=== PATIENT | female | born 1945 | race Caucasian/White ===

== ENCOUNTER 2021-07-01 08:09 | Emergency (ER) | payer OTHER ==
--- OUTSIDE RECORDS SUMMARY | 2021-07-01 08:13 | XMS REPORT | Continuity of Care Document ---
:1945 Author Organization [facility] t Address [address] [place] [address] Care Team Providers Name Role Phone YOSEF Attending Clinician Unavailable Yosef SYKES Attending Clinician Jed Mcmahon DO Attending Clinician 2, Lab Attending Clinician Unavailable Doctor Unassigned, Name Attending Clinician Unavailable Payers Payer Name Policy Type Policy Number Effective Date Expiration Date S ource Problems Condition Condition Condition Status Onset Resolution Last Treating Co mments Source Name Details Category Date Date Treatment Clinician Date Status Status Disease Active Univers post total post total 03-11 [place] repl[place] replac[place] 00 Me dical t t Branch Degenerati Degenerati Disease Active U nivers ve joint ve joint 6-26 [place] disease [place] right [place] 00 Me dical Branch Total knee Total knee Disease Active U nivers replacemen replacemen 6-25 it y of t status t status 00:00: [place] [address] Medical Branch Obesity Obesity Disease Active Univers (BMI (BMI 7-24 ity of 30-39.9) 30-39.9) 00:00: [place] [facility] 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 7-24 [place]y of arthropl[place]plas [place] 00 [place] Allergies, Adverse Reactions, Alerts Allergy Allergy Status Severity Reaction(s) Onset Inactive Treating Comm ents Source Name Type Date Date Clinician CIPROFLO DRUG Active N/V Univers XACIN INGREDI 03-11 ity of 00:00: [place] [facility] METRONID DRUG Active N/V Univers AZOLE INGREDI 03-11 ity of 00:00: [place] [facility] Ciproflo Propensi Active Nausea Univer s xacin ty to and/or 03-11 ity of adverse Vomiting 00:00: [place] reaction 00 Medical s Branch Metronid Propensi Active Nausea Univer s azole ty to and/or 03-11 ity of adverse Vomiting 00:00: [place] reaction 00 Medical s Branch CODEINE DRUG Active SOB Univers INGREDI 4-19 ity of 00:00: [place] 00 Medical Branch IODINE Drug Active Hives Univers AND Class 4-19 ity of IODIDE 00:00: [place] CONTAINI 00 Medical Branch PRODUCTS MORPHINE DRUG Active Hallucinates Un melissa (PF) 4-19 ity of 00:00: [place] 00 Medical Branch Codeine Propensi Active Shortness of U nivers ty to Breath 4-19 ity of adverse 00:00: [place] reaction 00 Medical s Branch Iodine Propensi Active Hives Univers And ty to 4-19 ity of Iodide adverse 00:00: [place] Containi reaction 00 Medica l s Branch Products Morphine Propensi Active Hallucinatio Univers (Pf) ty to ns 4-19 ity of adverse 00:00: [place] reaction 00 Medical Branch ADHESIVE Drug Active Other-Cmnt Univ ers Class ity of [facility] [place] [facility] Adhesive Propensi Active Other - See U nivers ty to comments ity of adverse [place] reaction [facility] [place] Social History Social Habit Start Date Stop Date Quantity Comments Source Sex Assigned At Universit y of [facility] [place] [facility] Exposure to Not sure [place] of SARS-CoV-2 [facility] (event) Branch History of Smoker University of tobacco use [facility] [place] [facility] Alcohol intake 2020-08-04 2020-08-04 Current University of 00:00:00 00:00:00 non-drinker of [facility] alcohol Branch (finding) Tobacco use and 2020-08-04 2020-08-04 Never used Universit y of exposure 00:00:00 00:00:00 [facility] [place] [facility] Alcohol Comment 2019-01-07 2019-01-07 quit Universit y of 00:00:00 00:00:00 [facility] [place] [facility] Smoking Status Start Date Stop Date Source Former smoker 2020-08-04 00:00:00 2020-08-04 00:00:00 Universi ty of [facility] [place] [facility] Medications Ordered Filled Start Stop Current Ordering Indication Dosage Frequency Signature Comments Components Source Medication Medication Date Date Medication? Clinician (SIG) Name Name LEVOTHYROXI Yes [id number] TAKE ONE Univers [place] 150 mcg 1-11 150MCG ity of tablet 00:00: TABLET ON [place] [facility] THRU Branch SUNDAY LEVOTHYROXI Yes [id number] TAKE ONE Univers [place] 150 mcg 1-11 150MCG ity of tablet 00:00: TABLET ON [place] Sunday [facility] THRU Branch SUNDAY LEVOTHYROXI Yes [id number] TAKE ONE Univers NE 150 mcg 1-11 150MCG ity of tablet 00:00: TABLET ON [place] [facility] THRU Branch SUNDAY MAGNESIUM 2019-08 Yes Take by Univ ers AMINO ACID 2-30 mouth. ity of CHELATE 17:28: [place] [address] Medical Branch aspirin 325 2019-08 Yes 325mg Take 325 U nivers mg tablet 2-30 mg by ity of 17:28: mouth [place] 29 daily. Medical Branch Zinc 50 mg 2019-08 Yes 50mg Take 50 mg U nivers Tab 2-30 by mouth ity of 17:28: daily. [place] [address] Medical Branch MAGNESIUM 2019-08 Yes Take by Univ ers AMINO ACID 2-30 mouth. ity of CHELATE 17:28: [place] [address] Medical Branch aspirin 325 2019-08 Yes 325mg Take 325 U nivers mg tablet 2-30 mg by ity of 17:28: mouth [place] 29 daily. Medical Branch Zinc 50 mg 2019- Yes 50mg Take 50 mg U nivers Tab 2-30 by mouth ity of 17:28: daily. [place] [address] Medical Branch MAGNESIUM 2019-08 Yes Take by Univ ers AMINO ACID 2-30 mouth. ity of CHELATE 17:28: [place] [address] Medical Branch aspirin 325 2019-08 Yes 325mg Take 325 U nivers mg tablet 2-30 mg by ity of 17:28: mouth [place] 29 daily. Medical Branch Zinc 50 mg 2019-08 Yes 50mg Take 50 mg U nivers Tab 2-30 by mouth ity of 17:28: daily. [place] [address] Medical Branch MAGNESIUM 2019- Yes Take by Univ ers AMINO ACID 2-30 mouth. ity of CHELATE 17:28: [place] [address] Medical Branch MAGNESIUM 2019-08 Yes Take by Univ ers AMINO ACID 2-30 mouth. ity of CHELATE 17:28: [place] ORAL 29 Medical Branch aspirin 325 2019-08 Yes 325mg Take 325 U nivers mg tablet 2-30 mg by ity of 17:28: mouth [place] 29 daily. Medical Branch Zinc 50 mg 2019-08 Yes 50mg Take 50 mg U nivers Tab 2-30 by mouth ity of 17:28: daily. [place] [address] Medical Branch MAGNESIUM 2019-08 Yes Take by Univ ers AMINO ACID 2-30 mouth. ity of CHELATE 17:28: [place] [address] Medical Branch aspirin 325 2019-08 Yes 325mg Take 325 U nivers mg tablet 2-30 mg by ity of 17:28: mouth [place] 29 daily. Medical Branch Zinc 50 mg 2019-08 Yes 50mg Take 50 mg U nivers Tab 2-30 by mouth ity of 17:28: daily. [place] [address] Medical Branch MAGNESIUM 2019-08 Yes Take by Univ ers AMINO ACID 2-30 mouth. ity of CHELATE 17:28: [place] [address] Medical Branch aspirin 325 2019-08 Yes 325mg Take 325 U nivers mg tablet 2-30 mg by ity of 17:28: mouth [place] 29 daily. Medical Branch Zinc 50 mg 2019-08 Yes 50mg Take 50 mg U nivers Tab 2-30 by mouth ity of 17:28: daily. [place] [address] Medical Branch Alpha 2019-08 2020- No 600mg Take 600 Univer s Lipoic Acid 2-30 12-30 mg by ity of 600 mg Cap 17:27: 00:00 mouth 2 Víctor as 35 :00 (two) Medical times Branch daily. Alpha 2019-08 2020- No 600mg Take 600 Univer s Lipoic Acid 2-30 12-30 mg by ity of 600 mg Cap 17:27: 00:00 mouth 2 Víctor as 35 :00 (two) Medical times Branch daily. levothyroxi 2019-08 Yes [id number] Take one Univers ne 150 mcg 2-16 150mcg ity of tablet 00:00: tablet on [place] [facility] thru Branch Sunday levothyroxi 2019-08 Yes [id number] Take one Univers ne 150 mcg 2-16 150mcg ity of tablet 00:00: tablet on [place] [facility] thru Branch Sunday levothyroxi 2019-08 Yes [id number] Take one Univers ne 150 mcg 2-16 150mcg ity of tablet 00:00: tablet on [place] [facility] thru Branch Sunday levothyroxi 2019-08- No [id number] Take one Univers ne 150 mcg 16 - 150mcg ity of tablet 00:00: 00:00 tablet on 00 00 Sunday Medical thru Branch Sunday levothyroxi 2019-08- No [id number] Take one Univers ne 150 mcg 216 - 150mcg ity of tablet 00:00: 00:00 tablet on 00 00 Sunday Medical thru Branch Sunday levothyroxi 2019-08- No [id number] Take one Univers ne 150 mcg 16 - 150mcg ity of tablet 00:00: 00:00 tablet on 00 00 Sunday Medical thru Branch Sunday levothyroxi 2019- No [id number] Take one Univers ne 150 mcg 08-14 150mcg ity of tablet 00:00: 00:00 tablet on 00 :00 [facility] [place] Sunday coenzyme 2019 Yes 100mg Take 100 Univ ers Q10 6-04 mg by ity of (COQ-10) 15:40: mouth [place] 100 mg 29 daily. Medical softgel Branch cyanocobala Yes 1{dose} Take 1 U nivers min, 6-04 Dose by ity of vitamin 15:40: mouth [place] B-12, 29 daily. Medical (VITAMIN Branch B-12) 1,000 mcg/mL Drop multivitami Yes 1{tbl} Take 1 Un melissa n, 6-04 tablet by ity of [place]-minerals 15:40: mouth [place] (COMPLETE 29 daily. Medical MULTIVITAMI Branch N) tablet coenzyme 2019-0 Yes 100mg Take 100 Univ ers Q10 6-04 mg by ity of (COQ-10) 15:40: mouth [place] 100 mg 29 daily. Medical softgel Branch cyanocobala 2019 Yes 1{dose} Take 1 U nivers min, 6-04 Dose by ity of vitamin 15:40: mouth [place] B-12, 29 daily. Medical (VITAMIN Branch B-12) 1,000 mcg/mL Drop multivitami 2019-0 Yes 1{tbl} Take 1 Un melissa n, 6-04 tablet by ity of [place]-minerals 15:40: mouth [place] (COMPLETE 29 daily. Medical MULTIVITAMI Branch N) tablet coenzyme 2019-0 Yes 100mg Take 100 Univ ers Q10 6-04 mg by ity of (COQ-10) 15:40: mouth [place] 100 mg 29 daily. Medical softgel Branch cyanocobala 20190 Yes 1{dose} Take 1 U nivers min, 6-04 Dose by ity of vitamin 15:40: mouth [place] B-12, 29 daily. Medical (VITAMIN Branch B-12) 1,000 mcg/mL Drop multivitami 2019-0 Yes 1{tbl} Take 1 Un melissa n, 6-04 tablet by ity of [place]-minerals 15:40: mouth [place] (COMPLETE 29 daily. Medical MULTIVITAMI Branch N) tablet Alpha 2019-0 Yes 600mg Take 600 Univers Lipoic Acid 6-04 mg by ity of 600 mg Cap 15:40: [place] 2 [place] (two) Medical times Branch daily. coenzyme 2019-0 Yes 100mg Take 100 Univ ers Q10 6-04 mg by ity of (COQ-10) 15:40: mouth [place] 100 mg 29 daily. Medical softgel Branch MAGNESIUM 0 Yes Take by Univ ers AMINO ACID 6-04 mouth. ity of CHELATE 15:40: [place] ORAL 29 Medical Branch cyanocobala Yes 1{dose} Take 1 U nivers min, 6-04 Dose by ity of vitamin 15:40: mouth [place] B-12, 29 daily. Medical (VITAMIN Branch B-12) 1,000 mcg/mL Drop multivitami 2019-0 Yes 1{tbl} Take 1 Un melissa n, 6-04 tablet by ity of [place]-minerals 15:40: mouth [place] (COMPLETE 29 daily. Medical MULTIVITAMI Branch N) tablet Alpha 2019-0 Yes 600mg Take 600 Univers Lipoic Acid 6-04 mg by ity of 600 mg Cap 15:40: [place] 2 [place] (two) Medical times Branch daily. coenzyme 2019-0 Yes 100mg Take 100 Univ ers Q10 6-04 mg by ity of (COQ-10) 15:40: mouth [place] 100 mg 29 daily. Medical softgel Branch MAGNESIUM 2019-0 Yes Take by Univ ers AMINO ACID 6-04 mouth. ity of CHELATE 15:40: [place] ORAL 29 Medical Branch cyanocobala 2019-0 Yes 1{dose} Take 1 U nivers min, 6-04 Dose by ity of vitamin 15:40: mouth [place] B-12, 29 daily. Medical (VITAMIN Branch B-12) 1,000 mcg/mL Drop multivitami Yes 1{tbl} Take 1 Un melissa n, 6-04 tablet by ity of [place]-minerals 15:40: mouth [place] (COMPLETE 29 daily. Medical MULTIVITAMI Branch N) tablet coenzyme Yes 100mg Take 100 Univ ers Q10 6-04 mg by ity of (COQ-10) 15:40: mouth [place] 100 mg 29 daily. Medical softgel Branch cyanocobala Yes 1{dose} Take 1 U nivers min, 6-04 Dose by ity of vitamin 15:40: mouth [place] B-12, 29 daily. Medical (VITAMIN Branch B-12) 1,000 mcg/mL Drop multivitami Yes 1{tbl} Take 1 Un melissa n, 6-04 tablet by ity of [place]-minerals 15:40: mouth [place] (COMPLETE 29 daily. Medical MULTIVITAMI Branch N) tablet coenzyme 0 Yes 100mg Take 100 Univ ers Q10 6-04 mg by ity of (COQ-10) 15:40: mouth [place] 100 mg 29 daily. Medical softgel Branch cyanocobala Yes 1{dose} Take 1 U nivers min, 6-04 Dose by ity of vitamin 15:40: mouth [place] B-12, 29 daily. Medical (VITAMIN Branch B-12) 1,000 mcg/mL Drop multivitami Yes 1{tbl} Take 1 Un melissa n, 6-04 tablet by ity of [place]-minerals 15:40: mouth [place] (COMPLETE 29 daily. Medical MULTIVITAMI Branch N) tablet coenzyme 0 Yes 100mg Take 100 Univ ers Q10 6-04 mg by ity of (COQ-10) 15:40: mouth [place] 100 mg 29 daily. Medical softgel Branch cyanocobala Yes 1{dose} Take 1 U nivers min, 6-04 Dose by ity of vitamin 15:40: mouth [place] B-12, 29 daily. Medical (VITAMIN Branch B-12) 1,000 mcg/mL Drop multivitami Yes 1{tbl} Take 1 Un melissa n, 6-04 tablet by ity of [place]-minerals 15:40: mouth [place] (COMPLETE 29 daily. Medical MULTIVITAMI Branch N) tablet coenzyme Yes 100mg Take 100 Univ ers Q10 6-04 mg by ity of (COQ-10) 15:40: mouth [place] 100 mg 29 daily. Medical softgel Branch cyanocobala Yes 1{dose} Take 1 U nivers min, 6-04 Dose by ity of vitamin 15:40: mouth [place] B-12, 29 daily. Medical (VITAMIN Branch B-12) 1,000 mcg/mL Drop multivitami Yes 1{tbl} Take 1 Un melissa n, 6-04 tablet by ity of [place]-minerals 15:40: mouth [place] (COMPLETE 29 daily. Medical MULTIVITAMI Branch N) tablet naproxen Yes TAKE 1 Univers 500 mg 5-06 TABLET BY ity of tablet 00:00: MOUTH [place] 00 TWICE A Medical DAY Branch naproxen Yes TAKE 1 Univers 500 mg 5-06 TABLET BY ity of tablet 00:00: MOUTH [place] 00 TWICE A Medical DAY Branch naproxen 2020- No TAKE 1 Univer s 500 mg 5-06 12-30 TABLET BY ity of tablet 00:00: 00:00 MOUTH [place] 00 :00 TWICE A Medical DAY Branch naproxen 0 2020- No TAKE 1 Univer s 500 mg 5-06 12-30 TABLET BY ity of tablet 00:00: 00:00 MOUTH [place] 00 :00 TWICE A Medical DAY Branch digoxin 125 Yes 125ug Take 125 U nivers mcg tablet 4-29 mcg by ity of 00:00: mouth [place] 00 daily. Medical Branch digoxin 125 Yes 125ug Take 125 U nivers mcg tablet 4-29 mcg by ity of 00:00: mouth [place] 00 daily. Medical Branch digoxin 125 2020- No 125ug Take 125 Univers mcg tablet 4-29 12-30 mcg by ity of 00:00: 00:00 mouth [place] 00 :00 daily. Medical Branch digoxin 125 2020- No 125ug Take 125 Univers mcg tablet 4-29 12-30 mcg by ity of 00:00: 00:00 mouth [place] 00 :00 daily. Medical Branch atenolol 25 Yes 50mg Take 50 mg Univers mg tablet 8-02 by mouth ity of 00:00: daily. Medical Branch atenolol 25 Yes 50mg Take 50 mg Univers mg tablet 03-07 by mouth ity of 00:00: daily. [facility] Branch atenolol 25 Yes 50mg Take 50 mg Univers mg tablet 03-07 by mouth ity of 00:00: daily. [place] [facility] Branch atenolol 25 Yes Univer s mg tablet 03-07 ity of 00:00: Medical Branch atenolol 25 Yes Univer s mg tablet 03-07 ity of 00:00: [place] [facility] atenolol 25 Yes 50mg Take 50 mg Univers mg tablet 03-07 by mouth ity of 00:00: daily. [place] [facility] Branch atenolol Yes 50mg Take 50 mg Univers mg tablet 03-07 by mouth ity of 00:00: daily. [place] [facility] atenolol Yes 50mg Take 50 mg Univers mg tablet 03-07 by mouth ity of 00:00: daily. [place] [facility] Branch atenolol Yes 50mg Take 50 mg Univers mg tablet 03-07 by mouth ity of 00:00: daily. [place] [facility] Branch pantoprazol Yes 20mg Take 20 mg Univers e 20 mg EC 4-21 by mouth ity o f tablet 00:00: daily. [place] [facility] Branch pantoprazol Yes 20mg Take 20 mg Univers e 20 mg EC 4-21 by mouth ity o f tablet 00:00: daily. [place] [facility] pantoprazol 2020- No 20mg Take 20 mg Univers e 20 mg EC 4-21 12-30 by mouth ity of tablet 00:00: 00:00 daily. [place] 00 [facility] pantoprazol 2020- No 20mg Take 20 mg Univers e 20 mg EC 4-21 12-30 by mouth ity of tablet 00:00: 00:00 daily. [place] 00 :00 [facility] Branch traMADOL 50 Yes 50mg Take 1 Univ ers mg tablet 7-27 tablet by ity o f 00:00: mouth [place] [address] every 4 Medical (four) Branch hours as needed for Pain (scale 7-10). traMADOL 50 2017-0 Yes 50mg Take 1 Univ ers mg tablet 7-27 tablet by ity o f 00:00: mouth [place] 00 every 4 Medical (four) Branch hours as needed for Pain (scale 7-10). traMADOL 50 2017-0 Yes 50mg Take 1 Univ ers mg tablet 7-27 tablet by ity o f 00:00: mouth [place] 00 every 4 Medical (four) Branch hours as needed for Pain (scale 7-10). traMADOL 50 2017-0 Yes 50mg Take 1 Univ ers mg tablet 7-27 tablet by ity o f 00:00: mouth [place] 00 every 4 Medical (four) Branch hours as needed for Pain (scale 7-10). traMADOL 50 2017-0 Yes 50mg Take 1 Univ ers mg tablet 7-27 tablet by ity o f 00:00: mouth [place] 00 every 4 Medical (four) Branch hours as needed for Pain (scale 7-10). traMADOL 50 2017-0 Yes 50mg Take 1 Univ ers mg tablet 7-27 tablet by ity o f 00:00: mouth [place] 00 every 4 Medical (four) Branch hours as needed for Pain (scale 7-10). traMADOL 50 2017-0 Yes 50mg Take 1 Univ ers mg tablet 7-27 tablet by ity o f 00:00: mouth [place] 00 every 4 Medical (four) Branch hours as needed for Pain (scale 7-10). traMADOL 50 2017-0 Yes 50mg Take 1 Univ ers mg tablet 7-27 tablet by ity o f 00:00: mouth [place] 00 every 4 Medical (four) Branch hours as needed for Pain (scale 7-10). traMADOL 50 2017-0 Yes 50mg Take 1 Univ ers mg tablet 7-27 tablet by ity o f 00:00: mouth [place] 00 every 4 Medical (four) Branch hours as needed for Pain (scale 7-10). Vital Signs Vital Name Observation Time Observation Value Comments Source Systolic blood 2020-08-04 17:24:00 115 mm[Hg] Univer sity of pressure [facility] [place] [facility] Diastolic blood 2020-08-04 17:24:00 77 mm[Hg] Unive rsity of [facility] Heart rate 2020-08-04 17:24:00 70 /min Universi ty of [facility] [place] [facility] Respiratory rate 2020-08-04 17:24:00 18 /min Univ ersity of [facility] [place] [facility] Body height 2020-08-04 17:24:00 167.6 cm Universi ty of [facility] [place] [facility] Body weight 2020-08-04 17:24:00 98.975 kg Universi ty [facility] BMI 2020-08-04 17:24:00 35.22 kg/m2 Universi ty [facility] Oxygen saturation in 2020-08-04 17:24:00 97 /min [facility] Arterial blood by [facility] Pulse oximetry Branch Procedures Procedure Date / Time Performed Performing Clinician [facility] e ASSIGNMENT OF BENEFITS 2020-08-04 16:54:18 Doctor Unassigned, No [facility] Name Medical Branch REFERRAL- 2020-07-20 06:01:00 Doctor Unassigned, No [facility] REQUEST/RESPONSE Name Medical [place] Encounters Start End Encounter Admission Attending Care Care Encounter Source Date/Time Date/Time Type Type Clinicians Facility Department ID 2021-07-27 2021-07-27 Outpatient R YOSEF [facility] [id number] Univers 09:00:00 09:00:00 TIFFANIE [id number] ity [facility] 2021-07-13 2021-07-13 Outpatient R YOSEF [facility] [id number] Univers 09:00:00 09:00:00 TIFFANIE [id number] ity [facility] 2020-09-03 2020-09-03 Patient Yosef [facility] [id number] Univers 00:00:00 00:00:00 Secure Msg Tiffanie Quiroga [id number] ity [facility] [id number] Profess[place] [phone] De dical nal [address] Branch Building 2020-08-29 2020-08-29 Patient Lisandro AKMIKE [id number] Univers 00:00:00 00:00:00 Outreach Louie PRIMARY [id number] i ty of [facility] [id number] [phone] De dical 388 Branch 2020-08-14 2020-08-14 Refill Yosef [facility] [id number] Univers 00:00:00 00:00:00 Tiffanei Quiroga [id number] i ty of [id number] [phone] De dical nal 220 [facility] 2020-08-11 2020-08-11 Weights And Measures Sealer 2, Adc Lab [facility] 1.2.840.114 [id number] Univers 08:18:43 08:33:43 Visit Tiffanie Navas [id number] ity of [place] [id number] [phone] De dical nal 353 [facility] 2020-08-11 2020-08-11 Outpatient R [facility] [id number] Univers 08:15:00 08:15:00 [id number] ity [facility] 2020-08-11 2020-08-11 Outpatient R [facility] [id number] Univers 08:15:00 08:15:00 ity [facility] 2020-08-04 2020-08-04 [facility] 1.2.840.114 [id number] Univers 10:54:28 12:09:44 Visit Scottankita [place] [id number] i ty [place] [id number] [phone] [facility] 220 [facility] 2020-08-04 2020-08-04 Outpatient R YOSEF [facility] [id number] Univers 11:00:00 11:00:00 TIFFANIE [id number] ity [facility] 2020-08-04 2020-08-04 [facility] [id number] Univers 11:00:00 11:00:00 SCOTTONG ity [facility] 2020-08-04 2020-08-04 Orders Doctor KAMAR 1.2.840.114 [id number] Univers 00:00:00 00:00:00 Only Unassigned, BARBARA [id number] [facility] [id number] Víctor as [phone] [address] 2020-07-21 2020-07-21 [facility] [id number] Univers 00:00:00 00:00:00 Tiffanie [place] [id number] i ty [place] [id number] [phone] De dical [facility] 220 [facility] 2020-07-20 2020-07-20 Orders Doctor KAMAR [id number] Univers 00:00:00 00:00:00 Only Unassigned, BARBARA [id number] ity of [place] [facility] [id number] Víctor as [phone] [place] [id number] Branch 2020-05-05 2020-05-05 Outpatient R YOSEF [facility] [id number] Univers 10:00:00 10:00:00 TIFFANIE [id number] [facility] [place] [facility] 2020-05-05 2020-05-05 Outpatient R YOSEF [facility] [id number] Univers 10:00:00 10:00:00 TIFFANIE [facility] [place] [facility] Results This patient has no known results.
[2021-07-01 08:47] LABS: Absolute Lymphocytes (CBC) 1.7 K/uL (0.7-4.9); Basophils % 0.7 % (0-1.3); Hematocrit 40.5 % (36.0-45.0); Lymphocytes % 12.2 % (15.3-44.8); MPV 8.4 fL (7.6-11.3); RBC Red Blood Cell Count 4.42 M/uL (3.86-4.86)
[2021-07-01] MEDS ORDERED: NA CHLORIDE 0.9% 500 ML ONE (08:59)
[2021-07-01] MEDS ORDERED: ONDANSETRON 4 MG/2 ML VIAL ONE (08:59)
[2021-07-01] MEDS ORDERED: MORPHINE 4 MG/ML SYR ONE (08:59)
[2021-07-01 09:08] LABS: Albumin 3.4 g/dL (3.4-5.0); Bilirubin Direct 0.2 mg/dL (0-0.2); Bilirubin Total 0.5 mg/dL (0.2-1.0); Potassium 4.4 mmol/L (3.5-5.1); Protein, Total 8.4 g/dL (6.4-8.2)
[2021-07-01] MEDS ORDERED: TRAMADOL HCL 50 MG TAB ONE (09:16)
--- NOTE | 2021-07-01 09:46 | RAD REPORT ---
EXAM DESCRIPTION: CT - Abdomen Pelvis Wo Contrast - 07/01/2021 9:02 am CLINICAL HISTORY: Abdominal pain COMPARISON: 2015 TECHNIQUE: Computed axial tomography of the abdomen and pelvis was obtained. IV and oral contrast we re not requested. All CT scans are performed using dose optimization technique as appropriate and may include automated exposure control or mA/KV adjustment according to patient size. FINDINGS: The evaluation of solid organs, vessels and bowel is limited secondary to the lack of con trast administration. Cholecystectomy. Mild ground-glass opacity left lower lobe Liver, spleen, adrenals and left kidney grossly normal. 2 millimeter calculus right kidney without hydronephrosis. A 5.2 centimeter right renal cyst. Colectomy. Right lower quadrant ileostomy. 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 3.8 centimeter soft tissue structure right pelvis. A right hip arthroplasty IMPRESSION: Mild ground-glass opacity left lower lobe may represent pneumonitis. 3.8 centimeter soft tissue structure right pelvis. This may represent a confluence of on opacified tammy wel. Solid mass is a another consideration. It is recommended that the patient have a pelvic ultrasou nd for further evaluation. .
--- NOTE | 2021-07-01 11:12 | ER ---
Nurse's Notes [facility] Name: Christa Matos Age: 76 yrs Sex: Female : 1945 Arrival Date: 07/01/2021 Time: 08:13 Bed 13 Private MD: Jordan Yanez Diagnosis: Acute interstitial pneumonitis;Chest pain, unspecified;Upper abdominal pain, unspecified Presentation: 07/01 08:18 Chief complaint: Patient states: LLQ pain that began 1 day ago. Pt reports that about 1 ss hour ago she began experiencing pain in her chest that radiates towards her L shoulder at times. Coronavirus screen: Client denies travel out of the [place] in the last 14 days. Ebola Screen: Patient denies exposure to infectious person. Patient denies travel to an Ebola-affected area in the 21 days before illness onset. Initial Sepsis Screen: Does the patient meet any 2 criteria? HR > 90 bpm. No. Patient's initial sepsis screen is negative. Does the patient have a suspected source of infection? No. Patient's initial sepsis screen is negative. Risk Assessment: Do you want to hurt yourself or someone else? Patient reports no desire to harm self or others. Onset of symptoms was June 30, 2021. 08:18 Method Of Arrival: Ambulatory ss 08:18 Acuity: LILY 3 ss Historical: - Allergies: 08:38 Codeine; ss 08:38 contrast; ss 08:38 Iodine; ss 08:56 Cipro; ss 08:56 METRONIDAZOLE; ss - PMHx: 08:38 Atrial Fib; Hypertension; Hypothyroidism; osteoarthritis; ss - Immunization history:: Client reports having NOT received the Covid vaccine. - Social history:: Smoking status: Patient denies any tobacco usage or history of. Screenin:26 Abuse screen: Denies threats or abuse. Nutritional screening: No deficits noted. vg1 Tuberculosis screening: No symptoms or risk factors identified. Fall Risk No fall in past 12 months (0 pts). No secondary diagnosis (0 pts). IV access (20 points). Ambulatory Aid- Crutches/Cane/Walker (15 pts). Gait- Normal/Bed Rest/Wheelchair (0 pts) Mental Status- Oriented to own ability (0 pts). Total [place] Fall Scale indicates Low Risk Score (25-44 pts). Fall prevention measures have been instituted. Side Rails Up X 2 Placed close to Nursing Station Family Present and informed to notify staff if they need to leave bedside. Assessment: 08:24 General: Appears in no apparent distress. uncomfortable, Behavior is calm, cooperative. vg1 Pain: Complains of pain in left lower quadrant, Upper left side of chest and Left shoulder Pain currently is 7 out of 10 on a pain scale. Pain began 1 day ago. states LLQ pain began yesterday morning 06/30/21 with NV and today about an hour ago began to have chest pain into left shoulder. Neuro: Level of Consciousness is awake, alert, obeys commands, Oriented to person, place, time, situation. Cardiovascular: Patient's skin is warm and dry. Respiratory: Airway is patent Respiratory effort is even, unlabored. GI: Abdomen is round non-distended, Colostomy site Ostomy appliance is intact. Bowel sounds present X 4 quads. Abdomen is tender to palpation in left lower quadrant. : No signs and/or symptoms were reported regarding the genitourinary system. EENT: No signs and/or symptoms were reported regarding the EENT system. Derm: Skin is intact, is healthy with good turgor. Musculoskeletal: Circulation, motion, and sensation intact. 09:21 Reassessment: Patient appears in no apparent distress at this time. No changes from vg1 previously documented assessment. Patient and/or family updated on plan of care and expected duration. Pain level reassessed. Patient is alert, oriented x 3, equal unlabored respirations, skin warm/dry/pink. pt refused morphine due to the cause of hallucinations, preferred Tramadol, provider notified; Received VO from DR Dalton to administer Tramadol 50 mg PO x1. 10:27 Reassessment: Patient appears in no apparent distress at this time. Patient and/or vg1 family updated on plan of care and expected duration. Pain level reassessed. Patient is alert, oriented x 3, equal unlabored respirations, skin warm/dry/pink. states 'feeling a little better'. 11:40 Reassessment: Patient appears in no apparent distress at this time. No changes from vg1 previously documented assessment. Patient and/or family updated on plan of care and expected duration. Pain level reassessed. Patient is alert, oriented x 3, equal unlabored respirations, skin warm/dry/pink. Vital Signs: 08:26 BP 126 / 89; Pulse 98; Resp 20; Temp 97.8; Pulse Ox 97% ; Weight 97.52 kg; Height 5 ft. vg1 7 in. (170.18 cm); Pain 7/10; 09:22 BP 108 / 71; Pulse 97; Resp 16; Pulse Ox 97% ; vg1 10:27 BP 131 / 75; Pulse 97; Resp 20; Pulse Ox 97% ; vg1 11:40 BP 112 / 73; Pulse 89; Resp 20; Pulse Ox 97% ; vg1 08:26 Body Mass Index 33.67 (97.52 kg, 170.18 cm) vg1 ED Course: 08:13 Patient arrived in ED. as 08:13 Jordan Yanez is Private Physician. as 08:16 Stephen Dalton MD is Attending Physician. kdr 08:24 Gwendolyn Suh, RN is Primary Nurse. vg1 08:26 Patient has correct armband on for positive identification. Placed in gown. Bed in low vg1 position. Call light in reach. Side rails up X2. Adult w/ patient. 08:27 Arm band placed on. vg1 08:36 Basic Metabolic Panel Sent. mh5 08:36 CBC with Diff Sent. mh5 08:36 Hepatic Function Sent. mh5 08:36 Lipase Sent. mh5 08:36 Initial lab(s) drawn, by nj, sent to lab. EKG done, by ED staff, reviewed by Stephen Dalton MD. Inserted saline lock: 20 gauge in right antecubital area, using aseptic technique. Blood collected. 08:37 Triage completed. ss 08:37 Warm blanket given. school lunch monitor on. Pulse ox on. NIBP on. mh5 09:03 Abdomen In Process Unspecified. EDMS 11:08 Jordan Yanez is Referral Physician. kdr 11:41 No provider procedures requiring assistance completed. IV discontinued, intact, vg1 bleeding controlled, No redness/swelling at site. Pressure dressing applied. Administered Medications: 09:09 Drug: NS 0.9% 500 ml Route: IV; Rate: bolus; Site: right antecubital; vg1 10:27 Follow up: IV Status: Completed infusion; IV Intake: 500ml vg1 09:12 Drug: Zofran (Ondansetron) 4 mg Route: IVP; Site: right antecubital; vg1 10:27 Follow up: Response: No adverse reaction vg1 09:20 Not Given (Patient Refused; Stated 'morphine causes hallucinations'): morphine 4 mg vg1 IVP once; RASS on ADMIN: Combtv4, Very Agttd3, Agttd2, Rstlss1, AlertClm0, Drwsy-1, Lt Sdtn-2, Mod Sdtn-3, Dp Sdtn-4, UnArsble-5 09:20 Drug: traMADol 50 mg Route: PO; vg1 10:26 Follow up: Response: No adverse reaction; Pain is decreased vg1 Intake: 10:27 IV: 500ml; Total: 500ml. vg1 Outcome: 11:12 Discharge ordered by . kdr 11:41 Discharged to home ambulatory, with family. vg1 11:41 Condition: stable 11:41 Discharge instructions given to patient, Instructed on discharge instructions, follow up and referral plans. medication usage, Demonstrated understanding of instructions, follow-up care, medications, Prescriptions given X 1. 11:41 Patient left the ED. vg1 Signatures: Dispatcher [employer] EDMS Stephen Dalton MD MD kdr Martinez, Amelia as Smirch, Shelby, RN RN Sonal Payne [facility] Gwendolyn Suh, RN RN vg1
--- NOTE | 2021-07-01 11:13 | EDPHYS ---
Physician Documentation [facility] Name: Christa Matos Age: 76 yrs Sex: Female : 1945 Arrival Date: 07/01/2021 Time: 08:13 Bed 13 Private MD: Jordan Yanez ED Physician Stephen Dalton HPI: 07/01 08:49 This 76 yrs old Female presents to ER via Ambulatory with complaints of Abdominal Pain, kdr Shoulder Pain. 08:50 The patient presents with abdominal pain in the left upper quadrant. Onset: The kdr symptoms/episode began/occurred suddenly, The patient states that she awoke about 2 AM on morning with the abdominal pain in her left upper quadrant. Since then the pain has migrated and expanded to include her left chest and left shoulder. The symptoms radiate to the left shoulder. Associated signs and symptoms: Pertinent positives: nausea and vomiting, Patient initially had some nausea and vomiting at the onset but since then she has had primarily nausea. The symptoms are described as achy, dull, vague, Pressure. Modifying factors: The symptoms are alleviated by nothing, Rocking back and forth. the symptoms are aggravated by nothing. Severity of pain: At its worst the pain was mild moderate just prior to arrival, in the emergency department the pain is unchanged. The patient has experienced similar episodes in the past, Patient states that the discomfort today is not dissimilar to a prior bowel obstruction. The patient has not recently seen a physician. Historical: - Allergies: 08:38 Codeine; ss 08:38 contrast; ss 08:38 Iodine; ss 08:56 Cipro; ss 08:56 METRONIDAZOLE; ss - PMHx: 08:38 Atrial Fib; Hypertension; Hypothyroidism; osteoarthritis; ss - Immunization history:: Client reports having NOT received the Covid vaccine. - Social history:: Smoking status: Patient denies any tobacco usage or history of. ROS: 08:50 Constitutional: Negative for fever, chills, and weight loss, Eyes: Negative for injury, kdr pain, redness, and discharge, ENT: Negative for injury, pain, and discharge, Neck: Negative for injury, pain, and swelling, Cardiovascular: Negative for chest pain, palpitations, and edema, Respiratory: Negative for shortness of breath, cough, wheezing, and pleuritic chest pain, Back: Negative for injury and pain, : Negative for injury, bleeding, discharge, and swelling, MS/Extremity: Negative for injury and deformity, Skin: Negative for injury, rash, and discoloration, Neuro: Negative for headache, weakness, numbness, tingling, and seizure activity. Psych: Negative for depression, anxiety, suicide ideation, homicidal ideation, and hallucinations, Allergy/Immunology: Negative for hives, rash, and allergies, Endocrine: Negative for neck swelling, polydipsia, polyuria, polyphagia, and marked weight changes, Hematologic/Lymphatic: Negative for swollen nodes, abnormal bleeding, and unusual bruising. 08:50 Abdomen/GI: Positive for abdominal pain, nausea and vomiting. Exam: 08:50 Constitutional: This is a well developed, well nourished patient who is awake, alert, kdr and in no acute distress. Head/Face: Normocephalic, atraumatic. Eyes: Pupils equal round and reactive to light, extra-ocular motions intact. Lids and lashes normal. Conjunctiva and sclera are non-icteric and not injected. Cornea within normal limits. Periorbital areas with no swelling, redness, or edema. Neck: Trachea midline, no thyromegaly or masses palpated, and no cervical lymphadenopathy. Supple, full range of motion without nuchal rigidity, or vertebral point tenderness. No Meningismus. Chest/axilla: Normal chest wall appearance and motion. Nontender with no deformity. No lesions are appreciated. Cardiovascular: Regular rate and rhythm with a normal S1 and S2. No gallops, murmurs, or rubs. Normal PMI, no JVD. No pulse deficits. Respiratory: Lungs have equal breath sounds bilaterally, clear to auscultation and percussion. No rales, rhonchi or wheezes noted. No increased work of breathing, no retractions or nasal flaring. Back: No spinal tenderness. No costovertebral tenderness. Full range of motion. Skin: Warm, dry with normal turgor. Normal color with no rashes, no lesions, and no evidence of cellulitis. MS/ Extremity: Pulses equal, no cyanosis. Neurovascular intact. Full, normal range of motion. Neuro: Awake and alert, GCS 15, oriented to person, place, time, and situation. Cranial nerves II-XII grossly intact. Motor strength 5/5 in all extremities. Sensory grossly intact. Cerebellar exam normal. Normal gait. Psych: Awake, alert, with orientation to person, place and time. Behavior, mood, and affect are within normal limits. 08:50 Abdomen/GI: Inspection: abdomen appears normal, There is an ileostomy bag in the right lower quadrant which appears to be draining appropriately. There is no blood in her ileostomy bag, Bowel sounds: diminished, in all quadrants, Palpation: soft, mild abdominal tenderness, in the left upper quadrant. 09:23 ECG was reviewed by the Attending Physician. kdr Vital Signs: 08:26 BP 126 / 89; Pulse 98; Resp 20; Temp 97.8; Pulse Ox 97% ; Weight 97.52 kg; Height 5 ft. vg1 7 in. (170.18 cm); Pain 7/10; 09:22 BP 108 / 71; Pulse 97; Resp 16; Pulse Ox 97% ; vg1 10:27 BP 131 / 75; Pulse 97; Resp 20; Pulse Ox 97% ; vg1 11:40 BP 112 / 73; Pulse 89; Resp 20; Pulse Ox 97% ; vg1 08:26 Body Mass Index 33.67 (97.52 kg, 170.18 cm) vg1 MDM: 08:50 Data reviewed: vital signs, nurses notes, lab test result(s), radiologic studies. kdr Counseling: I had a detailed discussion with the patient and/or guardian regarding: the historical points, exam findings, and any diagnostic results supporting the discharge/admit diagnosis, lab results, radiology results. 11:06 ED course: Reviewed and discussed all laboratory data with the patient and her . kdr Responded to questions. Indicated that no focus was necessarily found beyond the pneumonitis. This may represent an early pneumonia. We will treat accordingly at this time. The patient had been taking Bactrim and fluconazole for a periumbilical infection with drainage. She had modified treatment and stopped taking the fluconazole earlier in the week but had been on the Bactrim since Sunday. She will stop the Bactrim and continue only with the Augmentin as prescribed. They are happy with the care provided and the plan for discharge and follow-up. 11:12 Patient medically screened. kdr 07/01 08:18 Order name: Basic Metabolic Panel kdr 07/01 08:18 Order name: CBC with Diff; Complete Time: 10:36 kdr 07/01 08:18 Order name: Hepatic Function; Complete Time: 10:36 kdr 07/01 08:18 Order name: Lipase; Complete Time: :36 kdr 07/01 08:19 Order name: Basic Metabolic Panel; Complete Time: :36 EDMS 07/01 08:18 Order name: IV Saline Lock; Complete Time: 08:36 kdr 07/01 08:18 Order name: Labs collected and sent; Complete Time: 08:36 kdr 07/01 08:51 Order name: Abdomen ; Complete Time: 10:36 EDMS EC: Rate is 105 beats/min. Rhythm is irregularly irregular, A fib with Occasional PVCs. QRS kdr [place] is Normal. [place] interval is normal. QRS interval is normal. QT interval is normal. Clinical impression: Atrial Fibrillation and With rapid ventricular response. Administered Medications: 09:09 Drug: NS 0.9% 500 ml Route: IV; Rate: bolus; Site: right antecubital; vg1 10:27 Follow up: IV Status: Completed infusion; IV Intake: 500ml vg1 09:12 Drug: Zofran (Ondansetron) 4 mg Route: IVP; Site: right antecubital; vg1 10:27 Follow up: Response: No adverse reaction vg1 09:20 Not Given (Patient Refused; Stated 'morphine causes hallucinations'): morphine 4 mg vg1 IVP once; RASS on ADMIN: Combtv4, Very Agttd3, Agttd2, Rstlss1, AlertClm0, Drwsy-1, Lt Sdtn-2, Mod Sdtn-3, Dp Sdtn-4, UnArsble-5 09:20 Drug: traMADol 50 mg Route: PO; vg1 10:26 Follow up: Response: No adverse reaction; Pain is decreased vg1 Disposition Summary: 07/01/21 11:12 Discharge Ordered Location: Home kdr Problem: new kdr Symptoms: have improved kdr Condition: Fair kdr Diagnosis - Acute interstitial pneumonitis kdr - Chest pain, unspecified kdr - Upper abdominal pain, unspecified kdr Followup: kdr - With: Jordan Yanez - When: 2 - 3 days - Reason: If symptoms return, Further diagnostic work-up, Recheck today's complaints, Continuance of care, Re-evaluation by your physician Discharge Instructions: - Discharge Summary Sheet kdr - Nonspecific Chest Pain, Adult, [id number] kdr - Pneumonitis kdr Forms: - Medication Reconciliation Form kdr - Thank You Letter kdr - Antibiotic Education kdr Prescriptions: - Augmentin 875-125 mg Oral Tablet - take 1 tablet by ORAL route every 12 hours for 10 days; 20 tablet; Refills: 0, kdr Product Selection Permitted Signatures: Dispatcher [employer] EDMS Stephen Dalton MD MD kdr Yeni Wilkins RN RN ss Gwendolyn Suh RN RN vg1 Corrections: (The following items were deleted from the chart) 08:51 08:48 Abdomen Pelvis W Con+CT.[id number].BRZ ordered. EDMS EDMS
[2021-07-01 11:51] VITALS: TEMP 97.8; O2SAT 97
[2021-07-01 11:55] VITALS: BP 112/73
== END 2021-07-01 11:41 | disposition home or self-care (01) ==
LOC: ER 08:09
DX: J84.114 Acute interstitial pneumonitis (principal); R10.12 Left upper quadrant pain; I10 Essential (primary) hypertension; Z88.1 Allergy status to other antibiotic agents; Z88.5 Allergy status to narcotic agent; Z91.041 Radiographic dye allergy status; Z91.048 Other nonmedicinal substance allergy status
CPT/HCPCS: 96361; 93005; 85025; 80048; 36415; 80076; 83690; 74176; 96374; 99285; J7040; J2405

== ENCOUNTER 2023-03-16 09:36 | Day surgery (SDC) | payer OTHER ==
[2023-03-16 09:55] LABS: Absolute Lymphocytes (CBC) 1.7 K/uL (0.7-4.9); Hematocrit 39.4 % (36.0-45.0); Lymphocytes % 19.3 % (15.3-44.8); MCV 95.4 fL (80-100); MPV 7.6 fL (7.6-11.3); Platelets 313 thou/uL (152-406); RBC Red Blood Cell Count 4.13 M/uL (3.86-4.86)
[2023-03-16] MEDS ORDERED: FENTANYL CITR 100 MCG/2 ML ONE (09:55)
[2023-03-16] MEDS ORDERED: dexAMETHasone 10 MG/ML VIAL ONE (09:55)
[2023-03-16] MEDS ORDERED: LIDOCAINE 1% MPF 5 ML VIAL ONE (09:55)
[2023-03-16] MEDS ORDERED: propofoL 200 MG/20 ML VIAL IV ONE ×4 (09:56→12:10)
[2023-03-16] MEDS ORDERED: EPINEPHRINE/PF 1 MG/ML AMP ONE (09:56)
[2023-03-16 10:08] LABS: Potassium 3.8 mEq/L (3.5-5.1)
[2023-03-16] MEDS ORDERED: Ringers Lactate 1,000 ML IV ONE (10:18)
[2023-03-16] MEDS ORDERED: CEFAZOLIN SODIUM 1 GM/VIAL ONE (10:18)
[2023-03-16] MEDS ORDERED: LIDOCAINE 2% MPF 5 ML VIAL ONE (11:21)
[2023-03-16] MEDS ORDERED: ESMOLOL HCL 10 ML IV ONE (11:46)
[2023-03-16] MEDS ORDERED: NS 0.9% VIAL 10 ML ONE ×2 (11:47→12:17)
--- NOTE | 2023-03-16 13:42 | RAD REPORT ---
EXAM DESCRIPTION: RAD - Fluoroscopy <1 Hour - 03/16/2023 1:32 pm CLINICAL HISTORY: ORIF RT OLECRANON COMPARISON: <Comparisons> FINDINGS: Fluoroscopy time: 0.8 minutes
[2023-03-16] MEDS ORDERED: HYDROCODONE/APAP 5/325 MG TAB ONE (14:18)
[2023-03-16 17:53] VITALS: BP 138/69; TEMP 97.6; O2SAT 96
--- NOTE | 2023-03-17 01:42 | OP ---
Date of Procedure: 03/16/2023 Surgeon: Levar Bateman MD Preoperative Diagnosis: Right comminuted highly displaced proximal ulnar fracture with involvement o f the elbow joint. Postoperative Diagnosis: Right comminuted highly displaced proximal ulnar fracture with involvement of the elbow joint. Procedure: Open reduction and internal fixation of olecranon and proximal ulnar fracture using the A cumed ulnar plating system. Estimated Blood Loss: 20 cc. Complications: There were no complications. Indications: Ms. Matos is a 77-year-old female who unfortunately fell, injuring her right upper extremity. She was seen and examined in my office where she was found to be neurovascularly intact. There were no signs of an open injury. However, x-rays demonstrated a highly comminuted and an ext remely displaced fracture of the proximal ulna. The ulnohumeral joint appeared to be intact and then it appeared to really involve the coronoid. Radial head is intact. Risks, benefits, and alternativ es of different methods of treating this were discussed with both her and the family and we will proc eed with open reduction and internal fixation of the ulna. They state they understand things as pres ented including risks associated and agreed to proceed. Description Of Procedure: The patient was taken to the operating room and placed in supine position. General anesthesia was obtained by staff. She previously had a block done in the holding area. Af ter this, her right upper extremity was then prepped and draped in the usual sterile fashion for the procedure and a sterile tourniquet was applied. The border of the ulna was then marked out using a m arking pen with a curve around the presumed tip of the ulna. Once it was reduced, C-arm was brought in to ensure we can get good AP and lateral views. After this, the arm was then elevated, but not ex sanguinated and the tourniquet was raised. A standard incision was made directly over the proximal u ginger farmer, which was taken down carefully through skin and soft tissues with a lateral deviation near the t ip of the olecranon. This then has progressed up a small distance for further exposure. This was ta keegan down carefully to the bone proximally to ensure that we were in the correct plane. It was then f ollowed up proximally until the fracture site was encountered. It should be noted that there was a l arge lateral fragment, which does not appear to involve the coronoid or joint surface. There was als o a small medial fragment. This was followed by the main fracture, which was cleaned and highly disp laced. The elbow joint was easily identified and any debris were cleared from there. The more proxi mal fracture fragment was then identified and cleaned. With the use of K-wires, the lateral fragment was held in place as the elbow was brought into extension, which allows for reapproximation of the t ip of the olecranon. After this has been held in place with a K-wire, the plate was then affixed wit h a split made in the triceps attachment to the tip. The more distal locking pegs appeared to be at the fracture site. If the plate is compressed down to the actual tip of the olecranon, it appears th at both of the sets of locking pegs would be in the fracture fragment. Therefore, decision made to l eave that a little bit more proximal than would normally fix. The toggle screw was then placed and t he fracture site was compressed and then the fracture was then held with additional 2 K-wires as the remainder of the screws were placed. These were checked under biplanar C-arm radiography and appeare d to approximate the joint surface quite well without over compression. It was brought through range of motion and it was felt to not gap and appears to be well captured. The most proximal screw was n ot used for fear of placing screws and the proximal fragment causing fragmentation, althou gh it does form a buttress. After this, the attention was then turned to the lateral fragment piece, which was then secured using a 2.7 screw. The final construct was observed under biplanar C-arm rad iography and appears to be corrected given the limits of the comminution as well as the patient's bon e stalk. The wound was copiously irrigated and the skin was closed using Vicryl sutures, followed by dl. She was then placed in Aquacel dressing as well as a bulky noncompressive dressing followe d by a well-padded posterior splint. She was then placed in a sling, awakened, and taken to recovery room. There were no complications. SE/MODL Voice ID: [id number] Report ID: [id number]
== END 2023-03-16 14:48 | disposition home or self-care (01) ==
LOC: OR 09:36
PROVIDERS: ATTEND Orthopaedic Surgery
PROC: 0PSK04Z Reposition Right Ulna with Internal Fixation Device, Open Approach (ICD-10-PCS; principal; 2023-03-16 11:30)
DX: S52.031A Displaced fracture of olecranon process with intraarticular extension of right ulna, initial encounter for closed fracture (principal)
CPT/HCPCS: 85025; 80048; 36415; 24685; A4216 ×2; J2704 ×3; J0171; J2001 ×2; J3010; J1100; J7120; J0690; 76000

== ENCOUNTER 2024-01-07 18:28 | Inpatient (IN) | payer OTHER ==
[~2024-01-07 18:28] MED LIST: ALBUTEROL 2.5 MG/3 ML NEB SOL ONE; DIPHENHYDRAMINE 50 MG/ML VIAL ONE; FAMOTIDINE 20 MG/2 ML VIAL IV ONE; IPRATROPIUM BROM 0.5MG/2.5ML ONE; METHYLPREDNISOLONE 125 MG INJ ONE; NA CHLORIDE 0.9% 1,000 ML ONE
--- NOTE | 2024-01-07 19:56 | RAD REPORT ---
EXAM DESCRIPTION: [facility] Single View01/07/2024 7:34 pm CLINICAL HISTORY: ABDOMINAL DISTENTION COMPARISON: Chest Pa And Lat (2 Views) dated 07/27/2021; Chest Single View dated 06/05/2016; Chest S carmel View dated 06/01/2016; Chest Single View dated 05/31/2016 TECHNIQUE: Portable AP view of the chest. FINDINGS: The lungs are clear. No pneumothorax or effusion. The cardiomediastinal contours are unre markable. IMPRESSION: No acute cardiopulmonary process.
--- NOTE | 2024-01-07 21:41 | RAD REPORT ---
EXAM DESCRIPTION: CT - Abdomen Pelvis Wo Contrast - 01/07/2024 8:25 pm CLINICAL HISTORY: ABD PAIN COMPARISON: No comparisonsAbdomen Pelvis Wo Contrast dated 07/18/2022; Abdomen Pelvis Wo Contras t dated 07/01/2021; Abdomen Pelvis Wo Contrast dated 05/29/2016; Abdomen Pelvis Wo Contrast dated 05/27/2016 TECHNIQUE: Thin cut axial CT imaging of the abdomen and pelvis was performed without IV contrast. Mu ltiplanar reformats were generated and reviewed. All CT scans are performed using dose optimization technique as appropriate and may include automated exposure control or mA/KV adjustment according to patient size. FINDINGS: No suspicious findings in the lung bases. The liver, spleen, adrenal glands, and pancreas show no suspicious findings. Gallbladder was surgical ly removed Symmetric renal contour, without suspicious parenchymal findings within limits of noncontrast techniq ue. No evidence of radiopaque calculi or hydroureteronephrosis. Stable lower pole cyst measuring 6.2 cm. 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 Small parastomal azul ia containing nondistended small bowel. Dilated mid to distal small bowel loops. Oral contrast progre sses to lower midline small bowel in the pelvis. A short segment of fecalization is seen in the right lower quadrant, with a transition point seen on series 201, image 55. No free air, free fluid or inf lammatory stranding. No hernia, mass or bulky lymphadenopathy. The urinary bladder is without signifi cant finding. No suspicious bony findings. IMPRESSION: Findings of small bowel obstruction, with distal small bowel focal transition point in t he right lower quadrant as above. Other stable findings as above.
[2024-01-07] MEDS ORDERED: ONDANSETRON 4 MG/2 ML VIAL ONE (22:31)
[2024-01-07] MEDS ORDERED: FENTANYL CITR 100 MCG/2 ML ONE (22:31)
[2024-01-07] MEDS ORDERED: FAMOTIDINE 20 MG/2 ML VIAL IV ONE (22:32)
[2024-01-07] MEDS ORDERED: NA CHLORIDE 0.9% 1,000 ML ONE (23:49)
[2024-01-07 23:57] LABS: Absolute Lymphocytes (CBC) 1.7 K/uL (0.7-4.9); Absolute Monocytes 0.6 K/uL (0.1-1.3); Absolute Neutrophil 10.8 K/uL (1.8-8.0); Basophils % 0.4 % (0-1.3); Eosinophils % 0.1 % (0-4.4); Hematocrit 39.7 % (36.0-45.0); Hemoglobin 13.4 g/dL (12.0-15.0); Lymphocytes % 13.2 % (15.3-44.8); MCH 31.8 pg (27.0-35.0); MCHC 33.6 g/dL (32.0-36.0); MCV 94.5 fL (80-100); MPV 8.7 fL (7.6-11.3); Monocytes % 4.3 % (3.3-12.3); Nucleated Red Blood Cells % 0.1 % (0-0); Platelets 311 thou/uL (152-406); RBC Red Blood Cell Count 4.21 M/uL (3.86-4.86); Red Cell Distribution Width 13.7 % (12.1-15.2)
[2024-01-08 00:10] LABS: Albumin 3.8 g/dL (3.4-5.0); Albumin/Globulin Ratio 0.9 (1.1-1.8); Anion Gap 10.1 mEq/L (5.0-15.0); Bilirubin Total 0.6 mg/dL (0.2-1.0); Globulin 4.4 g/dL (2.3-3.5); Potassium 4.1 mEq/L (3.5-5.1); Protein, Total 8.2 g/dL (6.4-8.2)
--- NOTE | 2024-01-08 00:32 | EDPHYS ---
Physician Documentation [facility] Name: Christa Matos Age: 78 yrs Sex: Female : 1945 Arrival Date: 01/07/2024 Time: 18:28 Bed 20 Private MD: ED Physician Alysia Lee HPI: 01/06 18:55 This 78 yrs old Female presents to ER via Ambulatory with complaints of Constipation. cp 18:55 The patient presents with abdominal pain abdominal distention constipation, reports no cp bowel movement from ileostomy. 18:55 Onset: The symptoms/episode began/occurred 2 day(s) ago. Associated signs and symptoms: cp Pertinent positives: nausea, Pertinent negatives: blood in stools, chest pain, diarrhea, fever, shortness of breath, vomiting. The symptoms are described as constant. Severity of pain: in the emergency department the pain is unchanged despite home interventions. Historical: - Allergies: 18:43 Codeine; bp 18:43 Cipro; bp 18:43 contrast; bp 18:43 Iodine; bp 18:43 metronidazole; bp - PMHx: 18:43 Atrial Fib; Hypertension; Hypothyroidism; osteoarthritis; bp - PSHx: 18:43 ILEOSTOMY (osteoarthritis); bp - Immunization history:: Adult Immunizations up to date. - Infectious Disease History:: Denies. - Social history:: Smoking status: Patient denies any tobacco usage or history of. ROS: 19:00 Constitutional: Negative for body aches, chills, fever, poor PO intake, cp 19:00 Eyes: Negative for injury, pain, redness, and discharge, cp 19:00 ENT: Negative for drainage from ear(s), ear pain, sore throat, difficulty swallowing, difficulty handling secretions, 19:00 Cardiovascular: Negative for chest pain, edema, palpitations, 19:00 Respiratory: Negative for cough, shortness of breath, wheezing, 19:00 Abdomen/GI: Positive for abdominal pain, nausea, constipation, anorexia, Negative for vomiting, black/tarry stool, rectal bleeding, 19:00 Back: Negative for pain at rest, pain with movement, 19:00 : Negative for urinary symptoms, 19:00 Neuro: Negative for altered mental status, dizziness, headache, syncope, weakness, 19:00 All other systems are negative, Exam: 19:05 Constitutional: The patient appears in no acute distress, alert, awake, cp non-diaphoretic, non-toxic, well developed, well nourished, uncomfortable, 19:05 Head/Face: Normocephalic, atraumatic. cp 19:05 Eyes: Periorbital structures: appear normal, Conjunctiva: normal, no exudate, no cp injection, Sclera: no appreciated abnormality, Lids and lashes: appear normal, bilaterally, 19:05 ENT: External ear(s): are unremarkable, Nose: is normal, Mouth: Lips: moist, Oral cp mucosa: moist, Posterior pharynx: Airway: no evidence of obstruction, patent, 19:05 Chest/axilla: Inspection: normal, 19:05 Cardiovascular: Rate: normal, Rhythm: regular, Edema: is not appreciated, JVD: is not appreciated, 19:05 Respiratory: the patient does not display signs of respiratory distress, Respirations: normal, no use of accessory muscles, no retractions, labored breathing, is not present, Breath sounds: are clear throughout, no decreased breath sounds, no stridor, no wheezing, 19:05 Abdomen/GI: Inspection: distension, that is mild, right mid abdomen ileostomy, Bowel sounds: diminished, in all quadrants, Palpation: soft, in the left upper quadrant, right lower quadrant and left lower quadrant, moderate abdominal tenderness, in all quadrants, rebound tenderness, is not appreciated, involuntary guarding, is not appreciated, 19:05 Back: pain, is absent, ROM is normal, 19:05 Neuro: Orientation: to person, place \T\ time. Mentation: is normal, Motor: moves all fours, no focal deficits, 23:48 ECG was reviewed by the Attending Physician. cp Vital Signs: 18:42 BP 113 / 85; Pulse 95; Resp 16; Temp 98; Pulse Ox 95% ; bp 23:00 BP 163 / 99; Pulse 112; Resp 18; Pulse Ox 97% on R/A; me1 23:16 Pain 4/10; me1 23:45 BP 147 / 97; Pulse 92; Resp 18; Pulse Ox 96% on R/A; me1 01/07 01:00 BP 170 / 94; Pulse 72; Resp 18 S; Pulse Ox 98% on R/A; jw7 23:16 Pain Scale: Adult me1 MDM: 01/06 18:42 Patient medically screened. sb4 20:00 Differential diagnosis: bowel obstruction, diverticulitis, non-specific abd pain, cp Peptic Ulcer Disease, Perf. Duodenal Ulcer, Perf. Gastric Ulcer, Pyelonephritis, Ureterolithiasis, urinary tract infection. 01/07 00:35 Data reviewed: vital signs, nurses notes, lab test result(s), radiologic studies, CT cp scan, plain films, and as a result, I will admit patient. 00:35 Consideration of Admission/Observation Patient was admitted/placed on observation. cp Management of patient was discussed with the following: Hospitalist: DR Lala will admit after discussion. I considered the following discharge prescriptions or medication management in the emergency department Medications were administered in the Emergency Department. See OCT. 01/06 18:52 Order name: CBC with Diff; Complete Time: 00:29 cp 01/07 00:29 Interpretation: Normal except: WBC 13.10; ZACHERY% 82.0; LYM% 13.2; NEUT A 10.8. cp 01/06 18:52 Order name: CMP cp 01/07 00:29 Interpretation: Normal except: NA 130; CL 95; GLUC 161; BUN 20; CRE 1.44; GFR 37; CA cp 11.0; GLOB 4.4; A/G 0.9. 01/06 18:52 Order name: Lipase cp 01/06 18:52 Order name: Urinalysis w/ reflexes cp 01/07 00:30 Order name: Lactate w/ 2H reflex if indic. cp 01/07 00:30 Order name: Blood Culture Adult (2) cp 01/07 01:22 Order name: Digoxin Level EDMS 01/07 01:22 Order name: CBC with Automated Diff EDMS 01/07 01:22 Order name: CBC with Automated Diff EDMS 01/07 01:22 Order name: CBC with Automated Diff EDMS / 01:22 Order name: Comprehensive Metabolic Panel EDMS / 01:22 Order name: Comprehensive Metabolic Panel EDMS 01/07 01:22 Order name: Comprehensive Metabolic Panel EDMS 01/07 01:22 Order name: Troponin High Sensitivity EDMS 01/07 01:22 Order name: Troponin High Sensitivity EDMS 01/07 01:31 Order name: Magnesium EDMS 01/07 01:31 Order name: Magnesium EDMS 01/07 01:31 Order name: Magnesium EDMS 01/07 01:31 Order name: Magnesium EDMS 01/07 02:29 Order name: Magnesium EDMS 01/06 18:52 Order name: XRAY Chest (1 view); Complete Time: 23:08 cp 01/06 19:58 Order name: Abdomen ; Complete Time: 23:08 EDMS 01/07 11:08 Order name: RAD EDMS 01/07 01:22 Order name: CONS Physician Consult EDSC 01/07 01:31 Order name: CONS Physician Consult EDSC 01/06 18:52 Order name: IV Saline Lock; Complete Time: 22:54 cp 01/06 18:52 Order name: Labs collected and sent; Complete Time: 22:54 cp 01/06 18:52 Order name: EKG - Nurse/Tech; Complete Time: 23:48 cp 01/06 22:59 Order name: Misc. Order: LAB RECOLLECT: ALL LABS; Complete Time: 23:16 rv1 01/07 00:30 Order name: Cath; Complete Time: 01:30 cp EC/03 23:48 Rate is 97 beats/min. Rhythm is irregular. QRS interval is normal. QT interval is cp prolonged. Interpreted by me. Reviewed by me. Administered Medications: 22:54 Drug: Famotidine IVP 20 mg IVP once; dilute with 10 mL 0.9% NaCl; give over 2 minutes me1 Route: IVP; Site: right antecubital; 23:16 Follow up: Response: No adverse reaction me1 22:54 Drug: Ondansetron IVP 4 mg IVP once; over 2 minutes Route: IVP; Site: right antecubital;me1 23:16 Follow up: Response: No adverse reaction; Nausea is decreased me1 22:54 Drug: fentaNYL (PF) IVP 25 mcg IVP once Route: IVP; Site: right antecubital; me1 23:16 Follow up: Pain 4/10 Adult; Response: No adverse reaction; Pain is decreased me1 23:52 Drug: NS 0.9% IV 500 ml IV at 500 ml/hr continuous Route: IV; Rate: 500 ml/hr; Site: ar1 right antecubital; 01/07 00:25 Follow up: Response: No adverse reaction; IV Status: Completed infusion; IV Intake: me1 500ml 00:26 Drug: NS 0.9% IV 500 ml IV at 75 ml/hr continuous Route: IV; Rate: 75 ml/hr; Site: me1 right antecubital; 05:32 Follow up: Response: No adverse reaction; IV Status: Infusion continued upon admission; jw7 IV Intake: 250ml 01:29 Drug: fentaNYL (PF) IVP 25 mcg IVP once Route: IVP; Site: right antecubital; jw7 05:31 Follow up: Response: No adverse reaction; Marked relief of symptoms; Pain is decreased jw7 02:17 Drug: Piperacillin-Tazobactam IVPB 3.375 grams IVPB once over 60 mins; (mix in NS 100 jw7 mL) Route: IVPB; Infused Over: 60 mins; Site: left antecubital; 05:32 Follow up: Response: No adverse reaction; IV Status: Completed infusion; IV Intake: jw7 100ml Disposition Summary: 01/08/24 00:31 Hospitalization Ordered Notes: Hospitalization Status: Inpatient Admission cp Provider: uGrmeet Lala cp Condition: Stable cp Problem: new cp Symptoms: have improved cp Bed/Room Type: Standard cp Location: Telemetry/MedSurg (observation)(01/08/24 11:57) bd Room Assignment: 231(01/08/24 11:57) bd Diagnosis - Small Bowel Obstruction cp Forms: - Medication Reconciliation Form cp - SBAR form cp - Leadership Thank You Letter cp Signatures: Dispatcher [employer] EDMS Kristen Mercado Corey, PA PA cp Peltier, Brian RN Silvia Solomon RN RN jw7 Anu Barton PA-C PA-C sb4 Dasia Bhatt rv1 Iram Henson RN RN me1 Corrections: (The following items were deleted from the chart) 01/06 18:52 18:52 CBC+H.LAB.BRZ ordered. EDMS EDMS 18:52 18:52 COMPREHENSIVE METABOLIC PANEL+C.LAB.BRZ ordered. EDMS EDMS 18:52 18:52 LIPASE+C.LAB.BRZ ordered. EDMS EDMS 18:52 18:52 Urinalysis+U.LAB.BRZ ordered. EDMS EDMS 18:52 18:52 Chest Single View+RAD.RAD.BRZ ordered. EDMS EDMS 18:52 18:52 Abdomen Pelvis W Con+CT.RAD.BRZ ordered. EDMS EDMS 19:32 18:53 Abdomen Pelvis W Con+CT.RAD.BRZ ordered. EDMS EDMS 01/07 03:36 00:31 Telemetry/MedSurg (Inpatient) cp rv1 03:36 00:31 cp rv1 11:57 03:36 BR ER HOLD rv1 bd 11:57 03:36 ERHOLD- rv1 bd
--- NOTE | 2024-01-08 00:32 | ER ---
Nurse's Notes [facility] Name: Christa Matos Age: 78 yrs Sex: Female : 1945 Arrival Date: 01/07/2024 Time: 18:28 Bed 20 Private MD: Diagnosis: Small Bowel Obstruction Presentation: 01/06 18:42 Chief complaint: Patient states: IMPACTED ILEOSTOMY x2 DAYS. Coronavirus screen: At bp this time, the client does not indicate any symptoms associated with coronavirus-19. Ebola Screen: No symptoms or risks identified at this time. Initial Sepsis Screen: Does the patient meet any 2 criteria? No. Patient's initial sepsis screen is negative. Does the patient have a suspected source of infection? No. Patient's initial sepsis screen is negative. Risk Assessment: Do you want to hurt yourself or someone else? Patient reports no desire to harm self or others. Onset of symptoms is unknown. 18:42 Method Of Arrival: Ambulatory bp 18:42 Acuity: LILY 3 bp Triage Assessment: 18:43 General: Appears uncomfortable, Behavior is calm, cooperative, appropriate for age. bp Pain: Complains of pain in abdomen. GI: Reports constipation. Historical: - Allergies: 18:43 Codeine; bp 18:43 Cipro; bp 18:43 contrast; bp 18:43 Iodine; bp 18:43 metronidazole; bp - PMHx: 18:43 Atrial Fib; Hypertension; Hypothyroidism; osteoarthritis; bp - PSHx: 18:43 ILEOSTOMY (osteoarthritis); bp - Immunization history:: Adult Immunizations up to date. - Infectious Disease History:: Denies. - Social history:: Smoking status: Patient denies any tobacco usage or history of. Screenin:40 [facility] ED Fall Risk Assessment (Adult) History of falling in the last 3 months, me1 including since admission No falls in past 3 months (0 pts) Confusion or Disorientation No (0 pts) Intoxicated or Sedated No (0 pts) Impaired Gait No (0 pts) Mobility Assist Device Used No (0 pt) Altered Elimination No (0 pt) Score/Fall Risk Level 0 - 2 = Low Risk Maintained a safe environment, Provided non-skid footwear, Hourly rounding (assess needs \T\ fall precautionary measures) done. Abuse screen: Denies threats or abuse. Nutritional screening: No deficits noted. Tuberculosis screening: No symptoms or risk factors identified. Assessment: 22:40 General: Appears uncomfortable, well groomed, well developed, well nourished, Behavior me1 is calm, cooperative, appropriate for age, Reports impacted ileostomy x 2 days. Pain: Complains of pain in abdomen Pain does not radiate. Pain currently is 10 out of 10 on a pain scale. Quality of pain is described as crampy, Pain began 2-3 days ago. Is continuous. Neuro: Level of Consciousness is awake, alert, obeys commands, Oriented to person, place, time, situation, Appropriate for age. Cardiovascular: Patient's skin is warm and dry. Respiratory: Airway is patent Respiratory effort is even, unlabored, Respiratory pattern is regular, symmetrical. GI: Abdomen is distended, Ileostomy site is clean and dry. Ostomy appliance is intact. Bowel sounds diminished in right upper quadrant, left upper quadrant, right lower quadrant and left lower quadrant Abdomen is tender to palpation X 4 quads. : No signs and/or symptoms were reported regarding the genitourinary system. EENT: No signs and/or symptoms were reported regarding the EENT system. Derm: Skin is intact, is healthy with good turgor, Skin is pink, warm \T\ dry. Musculoskeletal: No signs and/or symptoms reported regarding the musculoskeletal system. 01/07 00:45 General: Appears in no apparent distress. comfortable, Behavior is calm, cooperative, jw7 appropriate for age. Pain: Complains of pain in abdomen Pain does not radiate. Pain currently is 8 out of 10 on a pain scale. Quality of pain is described as crampy, Pain began 2-3 days ago. Is continuous. 00:45 Neuro: Level of Consciousness is awake, alert, obeys commands, Oriented to person, jw7 place, time, situation, Appropriate for age. Cardiovascular: Capillary refill < 3 seconds Patient's skin is warm and dry. Respiratory: Airway is patent Trachea midline Respiratory effort is even, unlabored, Respiratory pattern is regular, symmetrical. GI: Abdomen is distended, Ileostomy site is clean and dry. Ostomy appliance is intact. Bowel sounds diminished in abdomen Abdomen is tender to palpation X 4 quads. : No deficits noted. No signs and/or symptoms were reported regarding the genitourinary system. EENT: No deficits noted. No signs and/or symptoms were reported regarding the EENT system. Derm: Skin is intact, is healthy with good turgor, Skin is dry, Skin is normal, Skin temperature is warm. Musculoskeletal: Circulation, motion, and sensation intact. Range of motion: intact in all extremities. 01:00 General: PT ADMITTED PLEASE SEE [facility] FOR CHARTING AND VITAL SIGNS. jw7 12:27 Reassessment: Report faxed to 2nd floor, confirmed received. tl4 Vital Signs: 01/06 18:42 BP 113 / 85; Pulse 95; Resp 16; Temp 98; Pulse Ox 95% ; bp 23:00 BP 163 / 99; Pulse 112; Resp 18; Pulse Ox 97% on R/A; me1 23:16 Pain 4/10; me1 23:45 BP 147 / 97; Pulse 92; Resp 18; Pulse Ox 96% on R/A; me1 01/07 01:00 BP 170 / 94; Pulse 72; Resp 18 S; Pulse Ox 98% on R/A; jw7 23:16 Pain Scale: [place] [facility] [place] Course: 01/06 18:31 Patient arrived in ED. mg5 18:38 Bright Sauceda PA is PHCP. cp 18:38 Alysia Lee MD is Attending Physician. cp 18:38 PHCP role handed off by Bright Sauceda PA sb4 18:38 Anu Barton PA-C is PHCP. sb4 18:43 Triage completed. bp 18:43 Bright Sauceda PA is PHCP. sb4 18:44 Arm band placed on. bp 19:36 XRAY Chest (1 view) In Process Unspecified. EDMS 20:26 Abdomen In Process Unspecified. EDMS 22:21 Iram Henson, JOLYNN is Primary Nurse. me1 22:40 Patient has correct armband on for positive identification. Bed in low position. Call [facility] [place] in reach. Side rails up X 1. Provided Education on: POC. Verbalized understanding. . Client placed on continuous cardiac and pulse oximetry monitoring. NIBP monitoring applied. Pulse ox on. NIBP on. 22:40 No provider procedures requiring assistance completed. me1 22:55 CBC with Diff Sent. me1 22:55 CMP Sent. me1 22:55 Lipase Sent. me1 22:55 Urinalysis w/ reflexes Sent. me1 22:55 Initial lab(s) drawn, by pr, sent to lab. Inserted saline lock: 22 gauge in right pr1 antecubital area, using aseptic technique. 23:48 EKG done, by ED staff, reviewed by Bright JARA. pr1 01/07 00:31 Gurmeet Lala MD is Hospitalizing Provider. cp 01:45 First set of blood cultures drawn by pr. jw7 02:05 Inserted saline lock: 22 gauge in left antecubital area, using aseptic technique. jw7 02:05 Second set of blood cultures drawn by pr. jw7 03:00 Patient admitted, IV remains in place. jw7 Administered Medications: 01/06 22:54 Drug: Famotidine IVP 20 mg IVP once; dilute with 10 mL 0.9% NaCl; give over 2 minutes [facility] Route: IVP; Site: right antecubital; 23:16 Follow up: Response: No adverse reaction [facility] 22:54 Drug: Ondansetron IVP 4 mg IVP once; over 2 minutes Route: IVP; Site: right antecubital;[facility] 23:16 Follow up: Response: No adverse reaction; Nausea is decreased [facility] 22:54 Drug: fentaNYL (PF) IVP 25 mcg IVP once Route: IVP; Site: right antecubital; [facility] 23:16 Follow up: Pain 4/10 Adult; Response: No adverse reaction; Pain is decreased [facility] 23:52 Drug: NS 0.9% IV 500 ml IV at 500 ml/hr continuous Route: IV; Rate: 500 ml/hr; Site: [facility] right antecubital; 01/07 00:25 Follow up: Response: No adverse reaction; IV Status: Completed infusion; IV Intake: pr1 500ml 00:26 Drug: NS 0.9% IV 500 ml IV at 75 ml/hr continuous Route: IV; Rate: 75 ml/hr; Site: pr1 right antecubital; 05:32 Follow up: Response: No adverse reaction; IV Status: Infusion continued upon admission; jw IV Intake: 250ml 01:29 Drug: fentaNYL (PF) IVP 25 mcg IVP once Route: IVP; Site: right antecubital; [facility] 05:31 Follow up: Response: No adverse reaction; Marked relief of symptoms; Pain is decreased jw7 02:17 Drug: Piperacillin-Tazobactam IVPB 3.375 grams IVPB once over 60 mins; (mix in NS 100 jw7 mL) Route: IVPB; Infused Over: 60 mins; Site: left antecubital; 05:32 Follow up: Response: No adverse reaction; IV Status: Completed infusion; IV Intake: jw7 100ml Medication: 01/06 22:40 VIS not applicable for this client. me1 Intake: 01/07 00:25 IV: 500ml; Total: 500ml. me1 05:32 IV: 100ml; Total: 600ml. jw7 05:32 IV: 250ml; Total: 850ml. jw7 Outcome: 00:31 Decision to Hospitalize by Provider. cp 03:00 Admitted to ER Hold. Please see [facility] for further documentation. jw7 03:00 Condition: stable 03:00 Instructed on the need for admit, Demonstrated understanding of instructions, 13:34 Patient left the ED. tl4 Signatures: Dispatcher [employer] EDBright Lombardo PA PA cp Peltier, Brian, RN RN Silvia Soto RN RN jw7 Anu Barton PA-Violette PA-C Iram Calhoun RN RN me1 Keyana Lima mg5 Harshad Feliz RN RN tl4
[2024-01-08] MEDS ORDERED: NA CHLORIDE 0.9% 100 ML ONE (00:53)
[2024-01-08] MEDS ORDERED: PIPERACIL/TAZO 3.375 GM VIAL IV ONE (00:54)
--- NOTE | 2024-01-08 01:27 | P.HP ---
Certification for Inpatient With expected LOS: >2 Midnights Patient will require the following post-hospital care: None Practitioner: I am a practitioner with admitting privileges, knowledge of patient current condition, hospital course, and medical plan of care. Services: Services provided to patient in accordance with Admission requirements found in Title 42 Section 412.3 of the Code of Federal Regulations Patient History Date of Service: 01/08/24 Reason for admission: Small bowel obstruction History of Present Illness: 78-year-old female with past medical history of hypertension, atrial fibrillation on digoxin and atenolol, follows with Dr. jane at [facility], history of small bowel perforation requiring ile[place] [address] Barry; presented because of lack of ileostomy output since the last 1 day. She states she was able to pass scanty amount yesterday but none since the last 24 hours. She admits to some generalized abdominal pain which is cramping in pattern. She denies any nausea or vomiting. She presented to the ED because of worsening pain. On arrival in the ED vital signs were stable, WBC mildly elevated at 13,000 with left shift, serum sodium of 130 with creatinine 1.44, urinalysis pending CT of the abdomen and pelvics showed evidence of small bowel obstruction with a focal transition point in the right lower quadrant. She has been admitted for small bowel obstruction Allergies adhesive tape Allergy (Verified 03/16/23 10:01) Hives/Rash ciprofloxacin [From Cipro] Allergy (Verified 03/16/23 10:01) Hives/Rash nitrofurantoin Allergy (Verified 03/16/23 10:01) Hives/Rash codeine Adverse Reaction (Verified 03/16/23 10:01) Hives Iodinated Contrast Media [Iodinated Contrast Media - IV Dye] Adverse Reaction (Verified 03/16/23 10:01) Hives morphine Adverse Reaction (Verified 03/16/23 10:01) Anaphylaxis Home Medications: Atenolol [Tenormin] 1 tab PO BID 06/12/16 Levothyroxine [Synthroid*] 125 mcg PO [id number] 06/12/16 Tramadol HCl [Ultram] 50 mg PO Q6HP PRN 06/12/16 Aspirin [Aspirin EC 81 MG] 325 mg PO DAILY 03/16/23 - Past Medical/Surgical History Diabetic: No -: Hypertension -: GI ulcers -: Osteoarthritis -: A-fib -: Hypothyroidism -: Hysterectomy (Vaginal) -: Tonsillectomy -: Right ankle rods -: Right knee -: Hernia Surgery X2 -: Lap Choly 2009 - Family History Father -: Stroke Notes: at 62 of stroke. Brother , GI history. Living brother is 74 years, cardiac history. Mother -: Heart disease, Hypertension Notes: at 80 of heart disease. - Social History Smoking Status: Never smoker Smoking therapy provided: No Patient receptive to therapy: No Alcohol use: No CD- Drugs: No Caffeine use: Yes Place of Residence: Home Review of Systems 10-point ROS is otherwise unremarkable Physical Examination - Physical Exam General: Alert, In no apparent distress, Oriented x3 HEENT: Atraumatic, Normocephalic, PERRLA Neck: Supple, 2+ carotid pulse no bruit, JVD not distended Respiratory: Clear to auscultation bilaterally, Normal air movement Cardiovascular: No edema, Normal pulses, Regular rate/rhythm, Normal S1 S2 Gastrointestinal: Normal bowel sounds, Soft and benign, Non-distended, Other (ileostomy insitu , small watery smush in bag ) Neurological: Normal gait, Normal speech, Normal strength at 5/5 x4 extr, Cranial nerves 3-12 intact - Studies Laboratory Data (last 24 hrs) 01/07/24 01/07/24 23:03 23:03 WBC 13.10 H Hgb 13.4 Hct 39.7 Plt Count 311 Sodium 130 L Potassium 4.1 BUN 20 H Creatinine 1.44 H Glucose 161 H Total Bilirubin 0.6 AST 18 ALT 20 Alkaline Phosphatase 89 Lipase 21 Assessment and Plan - Problems (Diagnosis) (1) SBO (small bowel obstruction) Current Visit: Yes Status: Acute (2) Atrial fibrillation Onset Date: 05/29/16 Current Visit: No Status: Chronic Qualifiers: - Plan Impression Small bowel obstruction Acute kidney injury History of atrial fibsstable Hypertension History of colonic perforation status post indwelling ileostomy Plan Will admit patient to inpatient status General surgery consult in a.m. Keep n.p.o. Resume digoxinfollow digoxin level, placed on 0.25 mcg daily for now(patient states she was taking 0.5 mcg 5 days a week but mainly has as needed) Start gentle IV fluid Creatinine elevated, follow with gentle IV fluid Follow-up pending UA, may need empirical antibiotics given mild leukocytosis Lovenox for DVT prophylaxis Full code Possible hospital stay for more than 48 hours - Advance Directives Does patient have a Living Will: No Does patient have a Durable POA for Healthcare: No Physician Review: Patient Assessed, Agree with Above Assessment and Plan Time Spent Managing Pts Care (In Minutes): 65
[2024-01-08 01:55] LABS: Calcium Oxalate Crystals- Ur Few /HPF (None Seen); Specific Gravity 1.028 (1.005-1.030); Sqamous Epithelial <5 /HPF (None Seen); Urine Bacteria None Seen /HPF (<20); Urine Bilirubin NEGATIVE (Negative); Urine Blood Negative (Negative); Urine Clarity Extremely Turbid (Clear); Urine Color Yellow (Yellow); Urine Culture Reflex Order REFLEXED; Urine Glucose NEGATIVE (Negative); Urine Ketones 1+ (Negative); Urine Microscopic Reflex YN ORDER UMIC; Urine Mucus 1+ /HPF (None Seen); Urine Nitrite NEGATIVE (Negative); Urine Protein 1+ (Negative); Urine RBC <5 /HPF (None Seen); Urine Urobilinogen Normal (Normal); Urine pH 5.5 (5.0-7.0)
[2024-01-08 02:29] LABS: Magnesium 1.8 mg/dL (1.6-2.4)
[2024-01-08] MEDS ORDERED: ONDANSETRON 4 MG/2 ML VIAL ONE (02:49)
[2024-01-08] MEDS ORDERED: D5 0.9 NS 1,000 ML IV ONE (02:51)
[2024-01-08] MEDS: D5 0.9 NS 1,000 ML IV SCH (02:59)
[2024-01-08] MEDS: ONDANSETRON 4 MG/2 ML VIAL IV PRN (02:59)
[2024-01-08] MEDS ORDERED: MORPHINE 4 MG/ML SYR ONE ×2 (03:36→08:32)
[2024-01-08] MEDS ORDERED: MORPHINE 2 MG/ML SYR ONE (03:39)
[2024-01-08] MEDS: MORPHINE 4 MG/ML SYR IV PRN (03:42)
[2024-01-08 04:53] LABS: Absolute Lymphocytes (CBC) 1.5 K/uL (0.7-4.9); Absolute Monocytes 0.8 K/uL (0.1-1.3); Absolute Neutrophil 9.2 K/uL (1.8-8.0); Basophils % 0.2 % (0-1.3); Eosinophils % 0.1 % (0-4.4); Hematocrit 40.5 % (36.0-45.0); Hemoglobin 13.5 g/dL (12.0-15.0); MCH 31.7 pg (27.0-35.0); MCHC 33.4 g/dL (32.0-36.0); MCV 94.7 fL (80-100); Monocytes % 7.1 % (3.3-12.3); Neutrophils % 79.6 % (41.7-73.7); Nucleated Red Blood Cells % 0.1 % (0-0); Platelets 288 thou/uL (152-406); RBC Red Blood Cell Count 4.28 M/uL (3.86-4.86); Red Cell Distribution Width 13.6 % (12.1-15.2)
[2024-01-08 05:07] LABS: Albumin 3.6 g/dL (3.4-5.0); Albumin/Globulin Ratio 0.9 (1.1-1.8); Anion Gap 11.9 mEq/L (5.0-15.0); Bilirubin Total 0.8 mg/dL (0.2-1.0); Globulin 4.2 g/dL (2.3-3.5); Potassium 3.9 mEq/L (3.5-5.1); Protein, Total 7.8 g/dL (6.4-8.2)
[2024-01-08] MEDS ORDERED: LEVOTHYROXINE SOD 0.05 MG TABLET ONE (05:39)
[2024-01-08] MEDS: LEVOTHYROXINE SOD 0.125 MG TAB PO SCH (06:00)
[2024-01-08] MEDS ORDERED: ASPIRIN EC 325 MG TABLET PO ONE (08:49)
[2024-01-08] MEDS ORDERED: atenoloL 50 MG TAB ONE (08:49)
[2024-01-08] MEDS: atenoloL 50 MG TAB PO SCH (09:00)
[2024-01-08] MEDS: ASPIRIN EC 325 MG TABLET PO SCH (09:00)
--- NOTE | 2024-01-08 11:07 | RAD REPORT ---
EXAM DESCRIPTION: RAD - Abdomen 1 View (KUB) - 01/08/2024 10:33 am CLINICAL HISTORY: SBO COMPARISON: Abdomen Pelvis Wo Contrast dated 01/07/2024 TECHNIQUE: Single AP view of the abdomen. FINDINGS: Persistent small bowel dilation most notably in the right flank, with maximal small bowel caliber 4.8 cm. No air-fluid levels, free air, or pneumatosis. No suspicious calcifications. No significant bony abnormality. IMPRESSION: Persistent small bowel dilation suggestive of a degree of obstruction.
--- NOTE | 2024-01-08 13:16 | P.PN ---
Date of Service: 01/08/24 Pt seen and examined. Pt is a 78-year-old female with past medical history of hypertension, atrial fibrillation on digoxin and atenolol, and small bowel perforation [place] [address] Barry who presented with lack of ileostomy output for 1 day. A/P: Small bowel obstruction: Pt reports no outpt in the ostomy bag. Will keep her NPO. CT abd shows SBO. Will f/u serial KUB. Consulted Gen surgeon. Acute kidney injury: Cr is 1.3. Will avoid nephrotoxins, continue IVF and monitor renal function. History of atrial fibs: stable. Will continue telemetry and digoxin. Hypertension: Continue home meds. History of colonic perforation status post indwelling ileostomy: noted. DVT ppx: lovenox Code: Full code DIspo: Pending hospital course
--- NOTE | 2024-01-08 13:17 | EKG ---
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
--- NOTE | 2024-01-08 14:07 | CON ---
Date of Consultation: 01/08/2024 Reason For Consultation: Electrolyte imbalance, elevation in BUN and creatinine. History Of Present Illness: This is a very pleasant 78-year-old female with significant past medical history of hypertension, AFib, on digoxin, small bowel obstruction, status post ileostomy [place] [address] Barry, patient came to the hospital complaining from generalized abdominal pain with cramping and nausea without any vomiting after Sunday meal. The patient upon workup found to have a small bowel obstruction, elevating BUN and creatinine. Creatinine 1.4, GFR of 37. For that reason, we have been consulted. Patient denied taking any nonsteroidal. No change in her medication. There is no exposure to any contrast. The patient was started on hydration. Past Medical History: Include: 1. Hypertension. 2. AFib. 3. Small bowel obstruction, status post ileostomy. Allergies: TO ADHESIVE, CIPRO, NITROFURANTOIN, CODEINE, IODINE, MORPHINE. Home Medications: Include atenolol, levothyroxine, tramadol, and aspirin. Past Surgical History: Include right knee replacement, hernia repair, ileostomy, tonsillectomy, hysterectomy, laparoscopic cholecystectomy. Family History: Positive for CVA and hypertension. Social History: Denied smoking. Denied drinking. Denied drugs abuse. Review of Systems: Head and Neck: No red eye. No ear pain. GI: Has abdominal pain. Has nausea. No vomiting. : No polyuria. No dysuria. No hematuria. 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 Respiratory: No shortness of breath. Cardiovascular: No chest pain. Endocrine: No polydipsia. Skin: No rash. Physical Examination: General: When I saw the patient, patient lying in bed. Vital Signs: Blood pressure 118/82, pulse of 92, afebrile. Chest: Clear to auscultation. Heart: S1, S2. Systolic murmur. Abdomen: Distended, tender without guarding. On the abdomen, also there is ileostomy on the right side. Extremities: No edema. Neuro: Alert. No focality. Laboratory Data: Back in March 2023, hemoglobin 13.2 and creatinine 1.3. GFR of 42. Current lab data yesterday, WBC 13.1, hemoglobin 13.4, sodium 130, potassium 4.1, bicarb 29, BUN 20, creatinine 1.4, calcium of 11. Today, lab data; sodium 134, potassium 3.9, bicarb 30, BUN 20, creatinine down to 1.3, GFR of 42, calcium 10.1, albumin 3.6. WBC 11.5, hemoglobin 13.5. Current Medications: The patient on, it includes Zofran, digoxin, atenolol, aspirin, levothyroxine, IV fluid, D5 normal saline at 100, fentanyl. Assessment And Plan: 1. Acute kidney injury on chronic kidney disease secondary to prerenal, secondary to GI loss, recovered, back to baseline. 2. Chronic kidney disease stage 3 with acute kidney injury secondary to prerenal, secondary to GI loss. I am going to continue hydration and we will monitor the patient. I will send for PC ratio. 3. Hyponatremia, depletion, currently improved. Continue current hydration. 4. Hypercalcemia secondary to dehydration, improved. I do not see the need for further workup. 5. Hypertension, controlled, optimal. Continue current treatment. 6. Small bowel obstruction, as by Primary. Time spent examining the patient [id number] reviewing data lab and the radiology placing orders and discussing the case with the patient discussing the case with the clinical team lead including hospitalist and nursing staff more than 75 minutes TOVA Voice ID: [id number] Report ID: [id number] ESTER
[2024-01-08] MEDS: MINERAL OIL 30 ML UCUP PO ONE ×2 (14:30→18:58)
[2024-01-08] MEDS: DIGOXIN 0.125 MG TABLET PO SCH (14:30)
--- NOTE | 2024-01-08 14:32 | P.CNS ---
Date of Consult: 01/08/24 PC: I was asked to see this 78-year-old female in regards to a small bowel obstruction. HPC: This patient who is well-known to me, has an ileostomy. Last Sunday, she ate some large portable mushrooms, which she apricots. She has been having trouble with her dentition, and has been looking to get her self a set of molar so she can chew her food better. Shortly thereafter she began experiencing hard cramping abdominal pain, she has had no improvement, and she presented the emergency room for evaluation and treatment. PSHx: Ileostomy for perforated cecum, hip replacement, bilateral knee replacements, hysterectomy in the past PMHx: Hypertension,'s coronary artery disease Social Hx: Allergic to adhesive tape, Cipro, codeine Sys R: States she is actually in pretty good shape. No shortness of breath, no chest pain or palpitations. Denies any urinary complaints. Has been having some issues with rectal discharge, but we will do with that as outpatient. O/E: Awake alert vital signs are stable, actually quite well at the moment. HEENT: Not jaundiced Chest: Chest movement equal bilaterally Abd: Abdomen is not markedly distended, has minimal pain or tenderness. Ileostomy looks good, has some fluid in the bag, but states that usually she has more liquid or gas. [place]: Intact Data: White cell count normal, CT scan shows possible small bowel obstruction Impression: This patient, did show picture of small bowel obstruction. I fear that it is due to dietary indiscretion and may clear itself. She does not look ill sick or toxic at the moment. Plan: Will dose her with 2 times mineral oil today. Will let her have some clear liquids. Will reassess in the a.m., but anticipate this episode may resolve by itself without surgical intervention.
[2024-01-08] MEDS: FENTANYL CITR 100 MCG/2 ML IV PRN (22:28)
[2024-01-09 07:52] LABS: Absolute Lymphocytes (CBC) 1.4 K/uL (0.7-4.9); Absolute Monocytes 0.9 K/uL (0.1-1.3); Absolute Neutrophil 6.5 K/uL (1.8-8.0); Basophils % 0.3 % (0-1.3); Eosinophils % 0.1 % (0-4.4); Hematocrit 38.5 % (36.0-45.0); Hemoglobin 12.9 g/dL (12.0-15.0); Lymphocytes % 16.3 % (15.3-44.8); MCH 31.8 pg (27.0-35.0); MCHC 33.6 g/dL (32.0-36.0); MCV 94.7 fL (80-100); MPV 8.6 fL (7.6-11.3); Monocytes % 10.1 % (3.3-12.3); Neutrophils % 73.2 % (41.7-73.7); Platelets 279 thou/uL (152-406); RBC Red Blood Cell Count 4.07 M/uL (3.86-4.86); Red Cell Distribution Width 13.7 % (12.1-15.2)
[2024-01-09 10:40] LABS: Albumin 3.5 g/dL (3.4-5.0); Albumin/Globulin Ratio 0.9 (1.1-1.8); Anion Gap 9.5 mEq/L (5.0-15.0); Bilirubin Total 0.8 mg/dL (0.2-1.0); Globulin 4.1 g/dL (2.3-3.5); Phosphorus 2.3 mg/dL (2.5-4.9); Potassium 3.5 mEq/L (3.5-5.1); Protein, Total 7.6 g/dL (6.4-8.2); Troponin High Sensitivity 13.7 pg/mL (<58.9)
--- NOTE | 2024-01-09 10:44 | RAD REPORT ---
EXAM DESCRIPTION: RAD - Abdomen 1 View (KUB) - 01/09/2024 9:34 am CLINICAL HISTORY: r/o SBO COMPARISON: Abdomen 1 View (KUB) dated 01/08/2024; Abdomen Pelvis Wo Contrast dated 01/07/2024 TECHNIQUE: Single AP view of the abdomen. FINDINGS: Gaseous filling of persistently dilated central abdominal and right lower quadrant small b owel loops, small bowel measures up to 4.4 cm in caliber. No air-fluid levels, free air, or pneumatos is. No suspicious calcifications. No significant bony abnormality. IMPRESSION: Persistent small-bowel distention, suggesting persistent obstruction.
[2024-01-09] MEDS: Magnesium Sulfate 2gm IVPB 2 G/50 ML BAG IV ONE (11:27)
[2024-01-09] MEDS ORDERED: Levofloxacin500mg IV 500 MG/100 ML BAG IV SCH (12:00)
[2024-01-09] MEDS: CEFTRIAXONE 1,000 MG in NA CHLORIDE 0.9% 50 ML IVPB SCH (12:59)
--- NOTE | 2024-01-09 13:52 | P.PN ---
Subjective Date of Service: 01/09/24 Chief Complaint: Small bowel obstruction Pt is resting comfortably in bed. She took mineral oil yesterday. Pt had small output in the ostomy bag. Will f/u SBFT. No other complaints. Review of Systems General: Unremarkable Eyes: Unremarkable ENT: Unremarkable Respiratory: Unremarkable Cardiovascular: Unremarkable Gastrointestinal: Abdominal Pain Genitourinary: Unremarkable Musculoskeletal: Unremarkable Integumentary: Unremarkable Neurological: Unremarkable Lymphatics: Unremarkable Physical Examination - Vital Signs Temperature: 98.6 F Blood Pressure: 148/78 Pulse: 73 Respirations: 18 Pulse Ox (%): 96 - Physical Exam General: Alert, In no apparent distress, Oriented x3 HEENT: Atraumatic, Normocephalic, PERRLA Neck: Supple, 2+ carotid pulse no bruit Respiratory: Clear to auscultation bilaterally, Normal air movement Cardiovascular: No edema, Normal pulses, Regular rate/rhythm, Normal S1 S2 Capillary refill: <2 Seconds Gastrointestinal: Normal bowel sounds, Soft and benign, Non-distended, Tenderness Musculoskeletal: No clubbing, No swelling, No contractures Integumentary: No breakdown, No significant lesion, No tenderness/swelling Neurological: Normal speech, Normal strength at 5/5 x4 extr, Normal tone, Sensation intact Lymphatics: No axilla or inguinal lymphadenopathy Assessment And Plan - Plan Small bowel obstruction: Pt reports small outpt in the ostomy bag thia am after taking mineral oil. Will continue CLD. CT abd shows SBO. KUB shows persistent SBO. Will f/u SBFT today. Consulted Gen surgeon. Acute kidney injury: Cr is 1.12<- 1.3. Will avoid nephrotoxins, continue IVF and monitor renal function. History of atrial fibs: stable. Will continue telemetry and digoxin. Hypertension: Continue home meds. History of colonic perforation status post indwelling ileostomy: noted. DVT ppx: lovenox Code: Full code DIspo: Pending hospital course Physician Review: Patient Assessed, Agree with Above Assessment and Plan
[2024-01-09] MEDS: KCL 20 MEQ/100 mL IVPB 20 MEQ/100 ML BAG IV SCH (14:20)
[2024-01-09] MEDS: NA CHLORIDE 0.9% 1,000 ML ONE (14:21)
--- NOTE | 2024-01-09 16:20 | PN ---
Date of Progress Note: 01/09/2024 Subjective: The patient was admitted to the hospital with acute kidney injury secondary to prerenal, secondary to GI loss, secondary to small bowel obstruction. The patient had electrolyte imbalance also and hypercalcemia. Patient was started on hydration. Objective: Vital Signs: Blood pressure 148/82, pulse of 94, afebrile. Chest: Clear to auscultation. Heart: S1, S2. Systolic murmur. Abdomen: Distended, tender. No guarding. Colostomy bag. Extremities: No edema. Neuro: Alert. No focality. Laboratory Data: WBC 8.8, hemoglobin 12.9, sodium 134, potassium 3.5, bicarb 28, BUN 21, creatinine 1.1. GFR up to 50. Uric acid trending down to 5, calcium 9.6, improved. Albumin 3.5. Current Medications: The patient on, it includes: 1. Atenolol. 2. Digoxin. 3. Levothyroxine. 4. Fentanyl. Assessment And Plan: 1. Acute kidney injury secondary to prerenal, secondary to GI loss. Obstructive uropathy has been ruled out. We will continue hydration. 2. Hypokalemia. We will supplement. 3. Hypomagnesemia. We will supplement. We will follow up lab. 4. Small bowel obstruction, as by Primary. 5. Hypercalcemia secondary to dehydration, recovered, resolved. 6. Urinary tract infection. I am going to start the patient on antibiotic and we will follow up. Time spent examining the patient [id number] reviewing data lab and the radiology placing orders and discussing the case with the patient discussing the case with the steam gigger including hospitalist and nursing staff more than 55 minutes TOVA Voice ID: [id number] Report ID: [id number] ESTER
[2024-01-09] MEDS: MINERAL OIL 30 ML UCUP PO ONE ×2 (18:00→23:00)
[2024-01-10 07:16] LABS: Albumin 3.1 g/dL (3.4-5.0); Anion Gap 8.3 mEq/L (5.0-15.0); Magnesium 2.1 mg/dL (1.6-2.4); Phosphorus 1.9 mg/dL (2.5-4.9); Potassium 3.3 mEq/L (3.5-5.1)
[2024-01-10] MEDS: POTASSIUM CL 40 MEQ in NA CHLORIDE 0.9% 500 ML IV SCH (09:31)
--- NOTE | 2024-01-10 11:03 | P.PN ---
Subjective Date of Service: 01/10/24 Chief Complaint: Small bowel obstruction Pt is resting comfortably in bed. She took mineral oil on 01/08/24. No surgical intervention at this time. Gen Surgeon believes that the mineral oil will be effective. Pt has no output in the ostomy bag. No other complaints. Review of Systems General: Unremarkable Eyes: Unremarkable ENT: Unremarkable Respiratory: Unremarkable Cardiovascular: Unremarkable Gastrointestinal: Unremarkable Genitourinary: Unremarkable Musculoskeletal: Unremarkable Integumentary: Unremarkable Neurological: Unremarkable Lymphatics: Unremarkable Physical Examination - Vital Signs Temperature: 97.5 F Blood Pressure: 128/79 Pulse: 93 Respirations: 14 Pulse Ox (%): 95 - Physical Exam General: Alert, In no apparent distress, Oriented x3 HEENT: Atraumatic, Normocephalic, PERRLA Neck: Supple, 2+ carotid pulse no bruit, JVD not distended Respiratory: Clear to auscultation bilaterally, Normal air movement, Diminished Cardiovascular: No edema, Normal pulses, Regular rate/rhythm, Normal S1 S2 Capillary refill: <2 Seconds Gastrointestinal: Normal bowel sounds, Soft and benign, Non-distended Musculoskeletal: No clubbing, No swelling, No contractures Integumentary: No rashes, No breakdown, No significant lesion Neurological: Normal speech, Normal strength at 5/5 x4 extr, Normal tone Lymphatics: No axilla or inguinal lymphadenopathy Assessment And Plan - Plan Small bowel obstruction: Pt reports small outpt in the ostomy bag thia am after taking mineral oil. Will continue CLD. CT abd shows SBO. KUB shows persistent SBO. Consulted Gen surgeon. No surgical intervention at this time. The surgeon believes the mineral oil will be effective. Hypokalemia: K is 3.3. Will replete with IV KCL and monitor. Acute kidney injury: Cr is 1.03 <- 1.12<- 1.3. Will avoid nephrotoxins, continue IVF and monitor renal function. History of atrial fibs: stable. Will continue telemetry and digoxin. Hypertension: Continue home meds. History of colonic perforation status post indwelling ileostomy: noted. DVT ppx: lovenox Code: Full code Dispo: Pending hospital course Physician Review: Patient Assessed, Agree with Above Assessment and Plan
[2024-01-10] MEDS: CALCIUM CARBONATE CHEW 500MG TAB PO SCH (11:42)
[2024-01-10] MEDS: POTASSIUM PHOS 30 MM in NA CHLORIDE 0.9% 500 ML IV ONE ×2 (12:29→14:53)
--- NOTE | 2024-01-10 13:24 | P.PN ---
Date of Service: 01/10/24 S: Patient has been having some cramping abdominal pain, says she feels better and slept very well last night. Has been complaining of some indigestion and heartburn O: Vital signs are stable, there is still nothing coming through the ostomy A: This patient, who has a small bowel obstruction, has been treated with observation and mineral oil and conservative measures for the last few days. She looks well. But I am uncomfortable with this course of treatment as I feel she is making no progress we are just filling up her intestines as now she is having some nausea and some heartburn P: I discussed with the patient the findings and how she has done up to this point. I have decided with her to take her to the operating room tomorrow for a exploratory laparotomy and lysis of adhesions. There is a possibility that she may have to have a resection. She understands this and wants to proceed.
--- NOTE | 2024-01-10 17:32 | PN ---
Date of Progress Note: 01/10/2024 Subjective: The patient was admitted to the hospital with acute kidney injury secondary to prerenal, secondary to GI loss with small bowel obstruction. The patient had electrolyte imbalance. The dillon ent was started on hydration. Kidney function started being improved. Her hyponatremia and hypokale huang continue to persist. Physical Examination: Vital Signs: When I saw the patient, blood pressure 128/79, pulse of 93, afebrile. Chest: Clear to auscultation. Heart: S1, S2. Regular. Systolic murmur. Abdomen: Soft, nontender. Colostomy bag in the right upper quadrant. Extremities: No edema. Neuro: Alert. No focality. Laboratory Data: Sodium 134, potassium 3.3, bicarb 30, BUN 20, creatinine 1. GFR of 55. Calcium 9. 3. Magnesium 2.1, phosphorus 1.9. Current Medications: The patient is on include: 1.Aspirin. 2.Ceftriaxone. 3.Atenolol. 4.Digoxin. 5.Magnesium sulfate. Assessment And Plan: 1.Acute kidney injury secondary to prerenal, secondary to gastrointestinal loss. Obstructive uropat hy has been ruled out. The patient will start oral intake. We will hold all IV fluids. 2.Hypokalemia, hypophosphatemia. We will supplement. 3.Hypomagnesemia, status post supplement, resolved. 4.Hypercalcemia secondary to dehydration, resolved. 5.Urinary tract infection. Culture negative. Continue current antibiotic. TOVA Voice ID: [id number] Report ID: [id number]
[2024-01-10] MEDS: METOPROLOL XL 25 MG TAB PO SCH (19:07)
[2024-01-11 07:19] LABS: Absolute Monocytes 0.9 K/uL (0.1-1.3); Absolute Neutrophil 5.3 K/uL (1.8-8.0); Basophils % 0.3 % (0-1.3); Eosinophils % 0.2 % (0-4.4); Hematocrit 40.3 % (36.0-45.0); Hemoglobin 13.7 g/dL (12.0-15.0); Lymphocytes % 13.7 % (15.3-44.8); MCHC 34.1 g/dL (32.0-36.0); MCV 93.8 fL (80-100); MPV 8.2 fL (7.6-11.3); Monocytes % 11.9 % (3.3-12.3); Neutrophils % 73.9 % (41.7-73.7); Platelets 286 thou/uL (152-406); RBC Red Blood Cell Count 4.29 M/uL (3.86-4.86); Red Cell Distribution Width 13.5 % (12.1-15.2)
[2024-01-11 07:45] LABS: Albumin 3.2 g/dL (3.4-5.0); Anion Gap 8.9 mEq/L (5.0-15.0); Phosphorus 2.5 mg/dL (2.5-4.9)
[2024-01-11 07:46] LABS: Magnesium 1.9 mg/dL (1.6-2.4); Potassium 3.9 mEq/L (3.5-5.1)
[2024-01-11] MEDS ORDERED: LIDOCAINE 2% MPF 5 ML VIAL ONE (08:46)
[2024-01-11] MEDS ORDERED: FENTANYL CITR 100 MCG/2 ML ONE ×2 (08:46→13:14)
[2024-01-11] MEDS ORDERED: propofoL 200 MG/20 ML VIAL IV ONE (08:46)
[2024-01-11] MEDS ORDERED: ONDANSETRON 4 MG/2 ML VIAL ONE (08:46)
[2024-01-11] MEDS ORDERED: ROCURONIUM 50 MG/5 ML VIAL IV ONE ×2 (08:46→12:11)
[2024-01-11] MEDS: Ringers Lactate 1,000 ML IV ONE ×2 (09:40→12:00)
[2024-01-11] MEDS ORDERED: dexAMETHasone 10 MG/ML VIAL ONE (11:15)
[2024-01-11] MEDS ORDERED: KETAMINE HCL IN 0.9 % NACL 50 MG/5 ML SYRINGE IV ONE (11:21)
--- NOTE | 2024-01-11 13:16 | P.PN ---
Subjective Date of Service: 01/11/24 Chief Complaint: Small bowel obstruction Pt is resting comfortably in bed. She took mineral oil on 01/08/24, but pt did not have any significant output. Gen surgeon will take her to OR to for surgical intervention. No other complaints. Review of Systems General: Unremarkable Eyes: Unremarkable ENT: Unremarkable Respiratory: Unremarkable Cardiovascular: Unremarkable Gastrointestinal: Abdominal Pain Genitourinary: Unremarkable Musculoskeletal: Unremarkable Integumentary: Unremarkable Neurological: Unremarkable Lymphatics: Unremarkable Physical Examination - Vital Signs Temperature: 98.1 F Blood Pressure: 147/85 Pulse: 85 Respirations: 16 Pulse Ox (%): 97 - Physical Exam General: Alert, In no apparent distress, Oriented x3 HEENT: Atraumatic, Normocephalic, PERRLA Neck: Supple, 2+ carotid pulse no bruit, JVD not distended Respiratory: Clear to auscultation bilaterally, Normal air movement Cardiovascular: No edema, Normal pulses, Regular rate/rhythm, Normal S1 S2 Capillary refill: <2 Seconds Gastrointestinal: Normal bowel sounds, Soft and benign, Non-distended, Tenderness Musculoskeletal: No clubbing, No swelling, No contractures Integumentary: No rashes, No breakdown, No significant lesion Neurological: Normal gait, Normal speech, Normal strength at 5/5 x4 extr, Normal tone, Sensation intact Lymphatics: No axilla or inguinal lymphadenopathy Assessment And Plan - Plan Small bowel obstruction: Pt reports small outpt in the ostomy bag this am after taking mineral oil. Will continue CLD. CT abd shows SBO. KUB shows persistent SBO. Consulted Gen surgeon.Gen surgeon took pt to the OR for surgical intervention. Hypokalemia: K is 3.9<- 3.3. Will monitor. Acute kidney injury: Cr is 1.08<- 1.03 <- 1.12<- 1.3. Will avoid nephrotoxins, continue IVF and monitor renal function. History of atrial fibs: stable. Will continue telemetry and digoxin. Hypertension: Continue home meds. History of colonic perforation status post indwelling ileostomy: noted. DVT ppx: lovenox Code: Full code Dispo: Pending hospital course Physician Review: Patient Assessed, Agree with Above Assessment and Plan
--- NOTE | 2024-01-11 13:20 | P.OP ---
Preoperative diagnosis: Small bowel obstruction Postoperative diagnosis: The same Primary procedure: Laparoscopy, exploratory laparotomy Secondary procedure: Lysis of adhesions with small bowel resection Anesthesia: General Estimated blood loss: 30 cc Specimen: Anastomotic remnant Operative Technique: The patient brought the operating room and placed supine on the table. After the insertion of a Meyer catheter, the patient's ileostomy was oversewn. The abdomen was now prepped with a Betadine solution, she was draped in the usual aseptic manner. Attention was turned towards the left anterior axillary line. We made a small skin incision. Using the Visiport we were able to enter the peritoneal cavity and created pneumoperitoneum continuing to approximately 12 mmHg. Our intention was to clear the midline is much as possible due to to the fact we knew she was going to most likely have very dense midline adhesions. We were able to visualize the midline in the lower portion of the abdomen and ensure there was no underlying bowel loops in portion. At this point the scope was removed, and attention was turned towards the midline itself. A skin incision was made. This brought down through the subcutaneous tissue. The fascia was identified. It was carefully opened with a 10 blade. This allowed us access into the part of the peritoneum that we had been able to blow up and safely place her fingers inside to protect the underlying structures. We were able to open our incision superiorly. This gave us access to the right lower quadrant. On the CT scan we could see a transition point in that area. We were able to dissect downwards through these adhesions and finally free up the small bowel that lay on that area. We could see there was an area of transi tion very obviously with a large loop of bowel that came to a narrowed point. We freed this portion up. It looked initially like it was just caused by a old piece of scar tissue was moment see after patient is had exploratory laparotomy. However on further palpation we were able to actually detect an area of what appeared to be microperforation from a long time ago that it healed up with scarring and had actually formed a stricture in this area. With that in mind we will carefully brought up this a loop of bowel. Protecting her surgical wound, a [id number] functional end and end anastomosis was constructed with a [place]. I was not happy about the size of our stoma. Because of this it was redone allowing us to have a good open anastomosis at this point there was under no tension. We were able to also palpate the contents of the proximal small bowel. Some of this, we had the bowel open was removed to apply some mechanical decompression to this intestine. On finally completing our anastomosis, the remaining small malleable portion of stool easily passed through our anastomosis with no hanging at all. The abdomen was inspected for hemostasis. And by abdomen I mean this limited area that we had opened to ensure that we had fully relieve the obstruction. I did not go back in and run the small bowel entirely as this patient literally has intestine soft and it is dilated throughout her intestinal tract and this was the one point that showed the problem on the CT scan and that has not been alleviated. At this point the midline incision was closed with a running suture of nylon 1 started from the top 1 from the bottom tied in the midpoint. The subcutaneous tissue was then irrigated and the skin was closed with dl. At the end of the procedure the patient was in a stable condition was sent to the recovery room. Needle sponge instrument count were correct. We also checked the ileostomy to ensure viability there was somewhat of a strictured area that was relieved by just making a small incision through our old staple line. Transferred to: Recovery Room Condition: Good
[2024-01-11] MEDS: HYDROMORPHONE HCL 1 MG/ML INJ ONE ×2 (13:44→14:06)
[2024-01-11] MEDS: D5 0.45 NS 1,000 ML IV SCH (15:06)
--- NOTE | 2024-01-11 15:13 | RAD REPORT ---
EXAM DESCRIPTION: RAD - Abdomen 1 View (KUB) - 01/11/2024 1:56 pm CLINICAL HISTORY: Placement of NGT/OGT. Post Insertion. COMPARISON: Abdomen 1 View (KUB) dated 01/09/2024; Abdomen 1 View (KUB) dated 01/08/2024 FINDINGS/IMPRESSION: The NG tube tip overlies the stomach. The side-port is near the GE junction. Co uld consider advancing by another 3-4 cm.
[2024-01-11] MEDS: METOPROLOL TARTRATE 5 MG/5 ML INJ IV PRN (16:27)
[2024-01-12 04:32] VITALS: BMI 30.3
[2024-01-12 05:08] LABS: Absolute Monocytes 1.3 K/uL (0.1-1.3); Basophils % 0.1 % (0-1.3); Eosinophils % 0.1 % (0-4.4); Hematocrit 36.6 % (36.0-45.0); Hemoglobin 12.3 g/dL (12.0-15.0); Lymphocytes % 10.9 % (15.3-44.8); MCHC 33.6 g/dL (32.0-36.0); MCV 95.1 fL (80-100); MPV 8.9 fL (7.6-11.3); Monocytes % 13.5 % (3.3-12.3); Neutrophils % 75.4 % (41.7-73.7); Platelets 267 thou/uL (152-406); RBC Red Blood Cell Count 3.84 M/uL (3.86-4.86); Red Cell Distribution Width 13.6 % (12.1-15.2)
[2024-01-12 05:14] LABS: UR PROTEIN 54.2 mg/dL (<11.9); Urine Protein/Creatinine Ratio 0.38 ratio (<0.15)
[2024-01-12 05:23] LABS: Albumin 2.6 g/dL (3.4-5.0); Anion Gap 6.1 mEq/L (5.0-15.0); Magnesium 1.9 mg/dL (1.6-2.4); Phosphorus 2.3 mg/dL (2.5-4.9); Potassium 4.1 mEq/L (3.5-5.1)
--- NOTE | 2024-01-12 09:18 | P.PN ---
Subjective Date of Service: 01/12/24 Chief Complaint: Small bowel obstruction Pt is resting comfortably in bed. She took mineral oil on 01/08/24, but pt did not have any significant output. Gen surgeon did surgical intervention on 01/11/24. POD #1. NG tube is in place. Pt is getting D5NS IVF. NO BM or flatulence. No other complaints. Review of Systems General: Unremarkable Eyes: Unremarkable ENT: Unremarkable Respiratory: Unremarkable Cardiovascular: Unremarkable Gastrointestinal: Abdominal Pain Genitourinary: Unremarkable Musculoskeletal: Unremarkable Integumentary: Unremarkable Neurological: Unremarkable Lymphatics: Unremarkable Physical Examination - Vital Signs Temperature: 97.1 F Blood Pressure: 127/67 Pulse: 94 Respirations: 22 Pulse Ox (%): 100 - Physical Exam General: Alert, In no apparent distress, Oriented x3 HEENT: Atraumatic, Normocephalic, PERRLA, Other (NG tube is in place with significant output) Neck: Supple, 2+ carotid pulse no bruit, JVD not distended Respiratory: Clear to auscultation bilaterally, Normal air movement Cardiovascular: No edema, Normal pulses, Regular rate/rhythm, Normal S1 S2 Capillary refill: <2 Seconds Gastrointestinal: Normal bowel sounds, Soft and benign, Non-distended Musculoskeletal: No clubbing, No swelling, No contractures Integumentary: No rashes, No breakdown, No significant lesion Neurological: Normal speech, Normal strength at 5/5 x4 extr, Normal tone, Sensation intact, Cranial nerves 3-12 intact Lymphatics: No axilla or inguinal lymphadenopathy Assessment And Plan - Plan Small bowel obstruction: Pt reports small outpt in the ostomy bag this am after taking mineral oil. Will continue D%NS IVF. CT abd shows SBO. KUB shows persistent SBO. Consulted Gen surgeon.Gen surgeon took pt to the OR for surgical intervention. POD #1. NG tube is in place with significant output. Hypokalemia: K is 4.1 <- 3.9<- 3.3. Will monitor. HyponatremiA: NA is 132. Will continue IVF and monitor. Acute kidney injury: Cr is 0.96<- 1.08<- 1.03 <- 1.12<- 1.3. Will avoid nephrotoxins, continue IVF and monitor renal function. History of atrial fibs: stable. Will continue telemetry and digoxin. Hypertension: Continue home meds. History of colonic perforation status post indwelling ileostomy: noted. DVT ppx: lovenox Code: Full code Dispo: Pending hospital course Physician Review: Patient Assessed, Agree with Above Assessment and Plan
[2024-01-12] MEDS: MINERAL OIL 30 ML UCUP FT ONE (10:48)
[2024-01-12] MEDS: POTASSIUM PHOS IN 0.9 % NACL 15 MMOL/250 ML BAG IV ONE (16:03)
--- NOTE | 2024-01-12 16:47 | PN ---
Date of Progress Note: 01/12/2024 Subjective: The patient was admitted to the hospital because of acute kidney injury. She was found to have small bowel obstruction. She underwent surgery yesterday for small bowel obstruction. Nephr ology consultation was requested for acute kidney injury and electrolyte imbalance. The patient was started on IV fluids, and renal function has improved. There is ongoing hyponatremia and hypokalemia . The patient is on supplementation. Review of Systems: Denies chest pain, palpitation. Physical Examination: Lungs: Clear to auscultation bilaterally. Heart: S1, S2. Abdomen: Soft, benign. Extremities: No edema. Impression And Plan: 1.Acute kidney injury secondary to prerenal azotemia, nonoliguric ATN secondary to gastrointestinal fluid loss and electrolyte loss. Obstructive uropathy was ruled out. The patient currently is in IC U. She will continue IV fluids for hydration. The patient has NG tube. Continue to monitor electro lytes closely and plan supplementation. The patient was found to have hypokalemia and hypophosphatem ia as well as hypomagnesemia. The patient may need TPN. 2.Hypercalcemia secondary to volume depletion, resolved. Monitor electrolytes. 3.Urinary tract infection. Culture was pending. Continue current antibiotics. EB/MODL Voice ID: [id number] Report ID: [id number]
--- NOTE | 2024-01-12 20:26 | P.PN ---
Date of Service: 01/12/24 S: Patient tired today, complaining that she could not find her telephone, otherwise alert and oriented. Pain is controlled. Says she feels occasional cramps, but nothing unmanageable. O: Vital signs are stable, minimal out through the nasogastric tube. Abdomen is soft, incision is clean A: Patient is doing well status post exploratory laparotomy and partial small bowel obstruction resection. Will most likely DC NG tube in the a.m. I shall keep it clamped overnight, and check residual in the a.m. Patient asking for ice chips. P: Patient is doing very well status post exploratory laparotomy with small bowel resection. I will allow the patient to have some Ensure or nutrition supplement that she likes per shift. The NG tube will be clamped tonight, will check residuals in the a.m. Anticipate having it removed soon. She has been up walking today, encourage better effort on incentive spirometry. Will follow her lab work. When she is discharged, she would like to go back to her own home.
[2024-01-12 21:03] LABS: Phosphorus 2.4 mg/dL (2.5-4.9); Potassium 3.1 mEq/L (3.5-5.1)
[2024-01-13 07:24] LABS: Absolute Lymphocytes (CBC) 1.1 K/uL (0.7-4.9); Absolute Monocytes 1.4 K/uL (0.1-1.3); Absolute Neutrophil 7.1 K/uL (1.8-8.0); Basophils % 0.4 % (0-1.3); Eosinophils % 0.4 % (0-4.4); Hematocrit 35.9 % (36.0-45.0); MCH 31.7 pg (27.0-35.0); MCHC 33.4 g/dL (32.0-36.0); MCV 95.1 fL (80-100); MPV 8.8 fL (7.6-11.3); Monocytes % 14.4 % (3.3-12.3); Neutrophils % 73.8 % (41.7-73.7); Platelets 215 thou/uL (152-406); RBC Red Blood Cell Count 3.77 M/uL (3.86-4.86); Red Cell Distribution Width 13.8 % (12.1-15.2)
--- NOTE | 2024-01-13 08:15 | P.PN ---
Subjective Date of Service: 01/13/24 Chief Complaint: Small bowel obstruction Pt is resting comfortably in bed. She took mineral oil on 01/08/24, but pt did not have any significant output. Gen surgeon did surgical intervention on 01/11/24. POD #2. NG tube clamped and in place. Pt is getting D5NS IVF. No BM or flatulence. She was transferred out f the ICU on 01/12/24. No other complaints. Review of Systems General: Unremarkable Eyes: Unremarkable ENT: Unremarkable Respiratory: Unremarkable Cardiovascular: Unremarkable Gastrointestinal: Abdominal Pain Genitourinary: Unremarkable Musculoskeletal: Unremarkable Integumentary: Unremarkable Neurological: Unremarkable Lymphatics: Unremarkable Physical Examination - Vital Signs Temperature: 97.6 F Blood Pressure: 163/87 Pulse: 106 Respirations: 20 Pulse Ox (%): 106 - Physical Exam General: Alert, In no apparent distress, Oriented x3 HEENT: Atraumatic, Normocephalic, PERRLA, Other (NG tube in place) Neck: Supple, 2+ carotid pulse no bruit, JVD not distended Respiratory: Clear to auscultation bilaterally, Normal air movement Cardiovascular: No edema, Normal pulses, Regular rate/rhythm, Normal S1 S2 Capillary refill: <2 Seconds Gastrointestinal: Normal bowel sounds, Soft and benign, Non-distended, Tenderness Musculoskeletal: No clubbing, No swelling, No contractures Integumentary: No rashes, No breakdown, No significant lesion Neurological: Normal gait, Normal speech, Normal strength at 5/5 x4 extr Lymphatics: No axilla or inguinal lymphadenopathy Assessment And Plan - Plan Small bowel obstruction: Pt reports small outpt in the ostomy bag this am after taking mineral oil. Will continue D5NS IVF. CT abd shows SBO. KUB shows persistent SBO. Consulted Gen surgeon. Gen surgeon took pt to the OR for surgical intervention. POD #2. NG tube is clamped and in place. Will start CLD when NG tube is out. Hypokalemia: K is 3.1 <- 4.1 <- 3.9<- 3.3. Will replete and monitor. HyponatremiA: NA is 132. Will continue IVF and monitor. Acute kidney injury: Cr is 0.96<- 1.08<- 1.03 <- 1.12<- 1.3. Will avoid nephrotoxins, continue IVF and monitor renal function. History of atrial fibs: stable. Will continue telemetry and digoxin. Hypertension: Continue home meds. History of colonic perforation status post indwelling ileostomy: noted. DVT ppx: lovenox Code: Full code Dispo: Pending hospital course Physician Review: Patient Assessed, Agree with Above Assessment and Plan
[2024-01-13 08:23] LABS: Albumin 2.4 g/dL (3.4-5.0); Magnesium 1.9 mg/dL (1.6-2.4); Phosphorus 1.7 mg/dL (2.5-4.9)
[2024-01-13] MEDS: ENSURE ENLIVE 237 ML CAN PO SCH (08:33)
[2024-01-13] MEDS: POTASSIUM CL 40 MEQ in NA CHLORIDE 0.9% 500 ML IV SCH (08:42)
--- NOTE | 2024-01-13 19:28 | P.PN ---
Date of Service: 01/13/24 S: Patient once again reports she had a very good sleep last night and got a lot of rest. Abdominal pain is better today. She is feeling her stomach rumbling. Small amount out through the ostomy. O: Patient looks tired today, minimal out through the nasogastric tube, abdomen is not distended. A: Patient improving, but has seriously low serum albumin, did not take much Ensure today. P: Will give the patient some mineral oil tonight via nasogastric tube, then DC NG tube tonight. DC Meyer catheter in the a.m. Started on full liquids. Advance diet as tolerated. She may have Ensure.
[2024-01-13] MEDS: MINERAL OIL 30 ML UCUP PO ONE (21:06)
[2024-01-13] MEDS: BISACODYL 10 MG RECTAL SUPP PR ONE (21:21)
[2024-01-13] MEDS: POTASSIUM PHOS IN 0.9 % NACL 15 MMOL/250 ML BAG IV ONE (21:25)
[2024-01-14] MEDS: MORPHINE 4 MG/ML SYR IV ONE (02:31)
--- NOTE | 2024-01-14 05:38 | PN ---
Date of Progress Note: 01/13/2024 Subjective: The patient is admitted to the hospital because of acute kidney injury. She was found t o have small bowel obstruction. She underwent surgery on Sunday for small bowel obstruction. She duff s NG tube. Nephrology consultation was requested for electrolyte abnormalities and acute kidney inju ry. The patient was started on IV fluids and renal function improved. There is ongoing hyponatremia , hypokalemia, and hypophosphatemia. The patient is on supplementation. Review of Systems: Denies chest pain, palpitation. Physical Examination: Lungs: Clear to auscultation bilaterally. Heart: S1, S2. Abdomen: Soft. Extremities: No edema. Impression And Plan: 1.Acute kidney injury secondary to prerenal azotemia, nonoliguric acute tubular necrosis secondary t o gastrointestinal fluid loss and electrolyte loss. Obstructive uropathy was ruled out. The patient currently was transferred out from ICU to telemetry floor. The patient will continue IV fluids for hydration. She has nasogastric tube. We will continue to monitor electrolytes closely and plan supp lementation according to lab results. The patient was found to have hypokalemia, hypophosphatemia, a nd hypomagnesemia. The patient may need total parenteral nutrition. 2.Hypercalcemia secondary to volume depletion, resolved. Monitor electrolyte. Continue IV hydration. 3.Urinary tract infection. Culture is pending. Continue antibiotic. AMANDA/BRUNAL Voice ID: [id number] Report ID: [id number]
[2024-01-14 07:34] LABS: Anion Gap 6.4 mEq/L (5.0-15.0); Potassium 3.4 mEq/L (3.5-5.1)
--- NOTE | 2024-01-14 07:54 | P.PN ---
Subjective Date of Service: 01/14/24 Chief Complaint: Small bowel obstruction Admitted with a small bowel obstruction, 01/11/24. NG tube clamped plan to start full liquids today, advance diet as tolerated full liquids Orthostatic with ambulation today., A-fib heart rate in the 130s with ambulation will consult cardiologyed, will initiate amiodarone drip - Physical Exam General: Alert, In no apparent distress, Oriented x3 HEENT: Atraumatic, Normocephalic, PERRLA, Neck: Supple, 2+ carotid pulse no bruit, JVD not distended Respiratory: Clear to auscultation bilaterally, Normal air movement Cardiovascular: No edema, Normal pulses, Regular rate/rhythm, Normal S1 S2 Capillary refill: <2 Seconds Gastrointestinal: Normal bowel sounds, Soft and benign, Non-distended, Tenderness Musculoskeletal: No clubbing, No swelling, No contractures Integumentary: No rashes, No breakdown, No significant lesion Neurological: Normal gait, Normal speech, Normal strength at 5/5 x4 extr Review of Systems Per HPI Physical Examination - Vital Signs Temperature: 97.9 F Blood Pressure: 98/65 Pulse: 115 Respirations: 17 Pulse Ox (%): 98 Assessment And Plan - Plan Assessment And Plan Small bowel obstruction: Improving Pt reports small outpt in the ostomy bag this am after taking mineral oil. Will continue D5NS IVF. CT abd shows SBO. KUB shows persistent SBO. Consulted Gen surgeon. Status post gen surgeon OR surgical intervention.01/10 NG tube is clamped and in place. Will start CLD when NG tube is out. Advance diet Hypokalemia: Improved K is 3.1 <- 4.1 <- 3.9<- 3.3. Will replete and monitor. HyponatremiA: Improving NA is 132. Will continue IVF and monitor. Acute kidney injury: Improved Cr is 0.96<- 1.08<- 1.03 <- 1.12<- 1.3. Will avoid nephrotoxins, continue IVF and monitor renal function. History of atrial fibs: Uncontrolled rate Orthostatic hypotension, new onset stable. Will continue telemetry and digoxin. Consult cardiology to eval- amiodarone loading dose, initiated per cardiology Hypertension: Continue home meds. History of colonic perforation status post indwelling ileostomy: noted. DVT ppx: lovenox Code: Full code Dispo: Pending hospital course Discharge Plan: Home Critical Care: No Time Spent Managing PTS Care (In Minutes): 35
[2024-01-14] MEDS: THIAMINE 200 MG/2 ML INJ IVP SCH (08:46)
[2024-01-14] MEDS: KCL 20 MEQ/100 mL IVPB 20 MEQ/100 ML BAG IV SCH (08:46)
[2024-01-14] MEDS ORDERED: MORPHINE 2 MG/ML SYR IV PRN (11:40)
--- NOTE | 2024-01-14 12:07 | EKG ---
Test Date: 2024-01-10 Test Time: 17:47:44 Pediatric Critical Care Nurse: RITA Oakes MEASUREMENT RESULTS: Intervals: Rate: 89 MA: QRSD: 96 QT: 394 QTc: 479 [place]: P: MA: QRS: 70 T: -83 INTERPRETIVE STATEMENTS: Atrial fibrillation with premature ventricular or aberrantly conducted complexes T wave abnormality, consider inferior ischemia or digitalis effect T wave abnormality, consider anterolateral ischemia or digitalis effect Prolonged QT Abnormal ECG Compared to ECG 01/07/2024 23:41:22 Ventricular premature complex(es) now present T-wave abnormality now present Right-axis deviation no longer present ST (T wave) deviation no longer present Possible ischemia still present Electronically Signed On 01-14-24 12:04:42 CDT by Benji Pacheco
[2024-01-14] MEDS: NA CHLORIDE 0.9% 500 ML IV ONE (13:26)
[2024-01-14] MEDS: AMIODARONE HCL 150 MG in D5W 100 ML IV STA (15:02)
[2024-01-14] MEDS: AMIODARONE HCL 900 MG in Dextrose 5%-Water 482 ML IV SCH (15:23)
--- NOTE | 2024-01-14 18:34 | PN ---
Date of Progress Note: 01/14/2024 Subjective: Patient is admitted to the hospital because of acute kidney injury. She was found to duff ve small bowel obstruction. She underwent surgery last week for small bowel obstruction. NG tube is removed. Patient has IV fluids and she is started on clear liquids. She received potassium supplem entation for hypopotassemia. She has ongoing mild hyponatremia and hypophosphatemia. Review of Systems: Denies chest pain or palpitation. Objective: Lungs: Clear to auscultation bilaterally. Heart: S1, S2. Abdomen: Soft. Extremities: No edema. Impression And Plan: 1.Acute kidney injury secondary to prerenal azotemia, nonoliguric acute tubular necrosis secondary t o gastrointestinal fluid loss and electrolyte loss. Obstructive uropathy was ruled out. The patient currently is transferred out from ICU to telemetry unit. She is hemodynamically stable. The patien t has some mild hypovolemia. She was found to have orthostatic hypotension and IV bolus with normal saline was ordered for hydration. Subsequently, she will resume maintenance IV fluids. She has had nasogastric tube which was already removed and the patient tolerates p.o. intake and advancing gradua lly with diet. The patient was found to have hypokalemia, hypophosphatemia and hypomagnesemia. The patient may need total parenteral nutrition if diet is not tolerated. 2.Hypercalcemia secondary to volume depletion, resolved. Monitor electrolytes. Continue IV hydration. 3.Urinary tract infection. Continue antibiotic. EB/MODL Voice ID: [id number] Report ID: [id number]
[2024-01-14] MEDS: MORPHINE 4 MG/ML SYR IV PRN (18:43)
[2024-01-14] MEDS: ENSURE MAX PROTEIN 330 ML LIQUID PO SCH (21:00)
[2024-01-15 03:38] LABS: Absolute Eosinophils 0.3 K/uL (0-0.5); Absolute Lymphocytes (CBC) 1.5 K/uL (0.7-4.9); Absolute Monocytes 1.4 K/uL (0.1-1.3); Absolute Neutrophil 6.3 K/uL (1.8-8.0); Basophils % 0.3 % (0-1.3); Hematocrit 28.2 % (36.0-45.0); Hemoglobin 9.8 g/dL (12.0-15.0); MCH 32.6 pg (27.0-35.0); MCHC 34.8 g/dL (32.0-36.0); MCV 93.6 fL (80-100); MPV 8.3 fL (7.6-11.3); Monocytes % 14.6 % (3.3-12.3); Neutrophils % 66.1 % (41.7-73.7); Nucleated Red Blood Cells % 0.1 % (0-0); Platelets 252 thou/uL (152-406); RBC Red Blood Cell Count 3.02 M/uL (3.86-4.86); Red Cell Distribution Width 13.7 % (12.1-15.2)
[2024-01-15 03:58] LABS: Anion Gap 4.9 mEq/L (5.0-15.0); Magnesium 1.9 mg/dL (1.6-2.4); Potassium 3.9 mEq/L (3.5-5.1)
--- NOTE | 2024-01-15 07:48 | P.PN ---
Subjective Date of Service: 01/15/24 Chief Complaint: Small bowel obstruction Admitted with a small bowel obstruction, 01/11/24. NG tube clamped plan to start full liquids today, advance diet as tolerated full liquids Orthostatic with ambulation today., A-fib heart rate in the 130s with ambulation will consult cardiologyed, will initiate amiodarone drip 01/14 patient monitor room Afib rate 89- - Physical Exam General: Alert, In no apparent distress, Oriented x3 HEENT: Atraumatic, Normocephalic, PERRLA, Neck: Supple, 2+ carotid pulse no bruit, JVD not distended Respiratory: Clear to auscultation bilaterally, Normal air movement Cardiovascular: No edema, Normal pulses, Regular rate/rhythm, Normal S1 S2 Capillary refill: <2 Seconds Gastrointestinal: Normal bowel sounds, Soft and benign, Non-distended, Tenderness Musculoskeletal: No clubbing, No swelling, No contractures Integumentary: No rashes, No breakdown, No significant lesion Neurological: Normal gait, Normal speech, Normal strength at 5/5 x4 extr Review of Systems per HPI Physical Examination - Vital Signs Temperature: 97.5 F Blood Pressure: 146/87 Pulse: 70 Respirations: 18 Pulse Ox (%): 97 Assessment And Plan - Plan Assessment And Plan Small bowel obstruction: Improving Pt reports small outpt in the ostomy bag this am after taking mineral oil. Will continue D5NS IVF. CT abd shows SBO. KUB shows persistent SBO. Consulted Gen surgeon. Status post gen surgeon OR surgical intervention.01/10 NG tube is clamped and in place. Will start CLD when NG tube is out. Advance diet Moderate generalized weakness, PT eval Hypokalemia: Improved K is 3.1 <- 4.1 <- 3.9<- 3.3. Will replete and monitor. HyponatremiA: Improving NA is 132. Will continue IVF and monitor. Acute kidney injury: Improved Cr is 0.96<- 1.08<- 1.03 <- 1.12<- 1.3. Will avoid nephrotoxins, continue IVF and monitor renal function. History of atrial fibs: Uncontrolled rate Orthostatic hypotension, new onset stable. Will continue telemetry and digoxin. 01/13 Consult cardiology to eval- amiodarone loading dose, initiated per cardiology 01/14 patient monitor room Afib rate 89- Hypertension: Continue home meds. History of colonic perforation status post indwelling ileostomy: noted. DVT ppx: lovenox Code: Full code Dispo: Pending hospital course Discharge Plan: Home Time Spent Managing PTS Care (In Minutes): 35
[2024-01-15] MEDS: METOPROLOL XL 50 MG TAB PO SCH (09:35)
--- NOTE | 2024-01-15 13:23 | PN ---
Date of Progress Note: 01/15/2024 Subjective: The patient was admitted to the hospital with the acute kidney injury secondary to prere nal, poor perfusion, ATN. Patient was admitted to ICU. Patient had hypercalcemia with UTI with toxi c ATN. Patient after hydration, kidney function has been improved, normalized. Objective: Vital Signs: When I saw the patient, blood pressure 143/79, pulse of 70, afebrile. Chest: Clear to auscultation. Heart: S1, S2. Regular. Abdomen: Soft, nontender. Extremities: No edema. Neuro: Alert. No focality. Laboratory Data: Hemoglobin 9.8, sodium 133, potassium 3.9, bicarb 31, BUN 8, creatinine 0.8, calciu m 8.4, magnesium 1.9. Current Medications: The patient on, it includes: 1.Ceftriaxone. 2.Calcium carbonate. 3.Amiodarone. 4.Atenolol 50 daily. 5.Metoprolol 50. 6.Ensure. 7.Levothyroxine. 8.IV fluid. Assessment And Plan: 1.Acute kidney injury secondary to poor perfusion ATN, toxic ATN, recovered, resolved. 2.Hypertension, controlled, optimal rate controlled. I am going to discontinue atenolol. We will r eplace. We will increase metoprolol to avoid double block and we will follow up the patient. 3.Urinary tract infection. Continue current antibiotic. 4.Hypocalcemia. Continue calcium carbonate. 5.Hyponatremia, depletional, recovery. We will discontinue IV fluid and we will follow up. JIMMY/CLYDE Voice ID: [id number] Report ID: [id number]
--- NOTE | 2024-01-15 14:08 | P.PN ---
Date of Service: 01/15/24 S: Patient doing well, no specific complaints. Says her ostomy is working okay. Anxious to get up and have a shower and ambulate. Talk to the social workers at the moment for home health. O: Patient looks well, ileostomy working A: Stable status post exploratory laparotomy with small bowel resection for small bowel obstruction. P: Patient is stable from surgical standpoint, may be discharged home when medicine agrees. I have given the patient my cell phone number to be related to the home health care agency. Should they have any questions or problems, they can contact me. For follow-up appointments, it may be possible for the home health care nurses to remove her dl.
--- NOTE | 2024-01-15 15:09 | EKG ---
Test Date: 2024-01-14 Test Time: 12:43:48 Garment Fitter: PAULINO MEASUREMENT RESULTS: Intervals: Rate: 98 IL: QRSD: 96 QT: 360 QTc: 459 [place]: P: IL: QRS: 59 T: -79 INTERPRETIVE STATEMENTS: Atrial fibrillation with premature ventricular or aberrantly conducted complexes Incomplete right bundle branch block ST & T wave abnormality, consider inferior ischemia or digitalis effect ST & T wave abnormality, consider anterior ischemia or digitalis effect Abnormal ECG Compared to ECG 01/10/2024 17:47:44 Incomplete right bundle-branch block now present ST (T wave) deviation now present T-wave abnormality no longer present Prolonged QT interval no longer present Possible ischemia still present Electronically Signed On 01-15-24 15:06:15 CDT by Deep Jerome
--- NOTE | 2024-01-15 19:53 | CON ---
Date of Consultation: 01/15/2024 Reason For Consultation: Atrial fibrillation with rapid ventricular response and orthostatic hypoten edd. History Of Present Illness: A 78-year-old female, history of hypertension, atrial fibrillation, she is on digoxin and atenolol, has history of hypothyroidism as well. She apparently was admitted with small bowel obstruction and she has been having atrial fibrillation with rapid ventricular response w hile she was in the hospital and she was having orthostatic hypotension, so rate-controlling agents h ave not been used well due to that, so I was consulted to start her on amiodarone since yesterday her heart rate is better and denies having any chest pain. She has shortness of breath on exertion. No other complaints. Past Medical History: As outlined above in HPI. Medications: Refer reconciliation sheet for detailed list. Allergies: SHE IS ALLERGIC TO CIPRO, MACROBID, AND CODEINE. Family History: No premature coronary artery disease or cancer. Past Surgical History: Hernia repair, cholecystectomy, tonsillectomy, and hysterectomy. Family History: No premature coronary artery disease or cancer. Social History: She does not smoke or drink. Does not use any drugs. Review of Systems: All systems reviewed, they were negative except as mentioned in the HPI. Physical Examination: Vital Signs: Reviewed. Head and Neck: Pupils are equal, reactive to light. Intact eye movements. No JVD. No cervical lym phadenopathy. Neck is supple. Thyroid is not enlarged. Lungs: Clear to auscultation bilaterally. No rhonchi, wheezing, or crackles. No accessory muscle u se. Heart: Irregularly irregular. No extra sounds. Abdomen: Soft, nontender. Bowel sounds positive. No organomegaly. No masses or hernia. No rigidi ty or rebound. Extremities: No edema, clubbing, cyanosis. Intact pulses. Skin: No rash. No nodule. Neurologic: Alert, awake, oriented x3. No acute focal deficits appreciated. Investigations: BUN is 8, creatinine 0.87, and troponins are negative and hemoglobin is 9.8. Assessment/recommendation: 1.Atrial fibrillation with rapid ventricular response. Continue full 24 hours load of amiodarone, t hen switch over to 200 mg twice a day by mouth and recommend also apixaban 5 mg twice a day as her CH ADSVASC score is elevated and she is at risk for stroke. Continue Toprol-XL and may increase to 200 mg for rate control as she refused WILFREDO-guided cardioversion. Ideally, I recommend cardioversion afte r the full load of amiodarone, however, the patient refused, so for rate control, once IV amiodarone load is finished, to put her on 200 mg twice a day and increase the Toprol-XL to 100 mg daily and I r ecommend to start apixaban 5 mg twice a day. 2.Hypertension. Blood pressure is controlled and she is having orthostatic hypotension. Atenolol w as discontinued, probably was contributing to that. I believe metoprolol will be softer. Continue c urrent management. 3.Hypothyroidism and I recommend to check TSH during this hospital stay to further evaluate this iss ue and make sure that she is euthyroid, especially the fact that she has atrial fibrillation. 4.Small bowel obstruction, she is improving. SR/MODL Voice ID: [id number] Report ID: [id number]
[2024-01-16 04:01] LABS: Absolute Basophils 0.1 K/uL (0-0.5); Absolute Eosinophils 0.4 K/uL (0-0.5); Absolute Lymphocytes (CBC) 1.4 K/uL (0.7-4.9); Absolute Monocytes 1.5 K/uL (0.1-1.3); Absolute Neutrophil 7.9 K/uL (1.8-8.0); Eosinophils % 3.2 % (0-4.4); Hematocrit 27.9 % (36.0-45.0); Hemoglobin 9.4 g/dL (12.0-15.0); Lymphocytes % 12.4 % (15.3-44.8); MCH 31.6 pg (27.0-35.0); MCHC 33.7 g/dL (32.0-36.0); MCV 93.8 fL (80-100); MPV 8.9 fL (7.6-11.3); Monocytes % 13.2 % (3.3-12.3); Neutrophils % 70.2 % (41.7-73.7); Platelets 295 thou/uL (152-406); RBC Red Blood Cell Count 2.98 M/uL (3.86-4.86); Red Cell Distribution Width 13.4 % (12.1-15.2)
[2024-01-16 04:58] LABS: Anion Gap 9.2 mEq/L (5.0-15.0); Potassium 3.2 mEq/L (3.5-5.1)
[2024-01-16 04:59] LABS: Albumin 2.1 g/dL (3.4-5.0); Magnesium 1.6; Phosphorus 2.6 mg/dL (2.5-4.9)
--- NOTE | 2024-01-16 07:16 | P.DS ---
Admission Date: 01/08/24 Discharge Date: 01/16/24 Disposition: DC HOME/HOME HEALTH CARE Discharge Condition: GOOD Reason for Admission: Small bowel obstruction Brief History of Present Illness: 78-year-old female with past medical history of hypertension, atrial fibrillation on digoxin and atenolol, follows with Dr. jane at [facility], history of small bowel perforation requiring ileostomy [place] [address] Barry; presented because of lack of ileostomy output since the last 1 day. She states she was able to pass scanty amount yesterday but none since the last 24 hours. She admits to some generalized abdominal pain which is cramping in pattern. She denies any nausea or vomiting. She presented to the ED because of worsening pain. On arrival in the ED vital signs were stable, WBC mildly elevated at 13,000 with left shift, serum sodium of 130 with creatinine 1.44, urinalysis pending CT of the abdomen and pelvics showed evidence of small bowel obstruction with a focal transition point in the right lower quadrant. She has been admitted for small bowel obstruction Physical Exam General: Alert, In no apparent distress, Oriented x3 HEENT: Atraumatic, Normocephalic, PERRLA Neck: Supple, 2+ carotid pulse no bruit, JVD not distended Respiratory: Clear to auscultation bilaterally, Normal air movement Cardiovascular: No edema, Normal pulses, Regular rate/rhythm, Normal S1 S2 Gastrointestinal: Normal bowel sounds, Soft and benign, Non-distended, Other (ileostomy) Neurological: Normal gait, Normal speech, Normal strength at 5/5 x4 extr, Cranial nerves 3-12 intact Hospital Course: 78-year-old female with past medical history of hypertension, atrial fibrillation on digoxin and atenolol, follows with Dr. jane at [facility], history of small bowel perforation requiring ileostomy [place] [address] Barry; presented because of lack of ileostomy output since the last 1 day. She states she was able to pass scanty amount yesterday but none since the last 24 hours. She admits to some generalized abdominal pain which is cramping in pattern. Was noted to have a small bowel obstruction, was evaluated by Dr. Barry, is status post Status post gen surgeon OR surgical intervention.01/10, is tolerating diet, was noted to have A-fib, RVR heart rate in the 130s with ambulation, cardiology was consulted started on amiodarone drip, diet was advanced as tolerated, patient can discharge home with home health,, follow-up with surgery in 1 week, follow-up with cardiology after discharge Assessment Small bowel obstruction post Status post gen surgeon OR surgical intervention.01/10 A-fib RVR, started on amiodarone, follow-up with cardiology after discharge-200 mg twice a day by mouth and recommend also apixaban 5 mg twice a day as her (patient refused Eliquis after discharge) CHADSVASC score is elevated and she is at risk for stroke. Educated on stroke risk. She was noted to have orthostatic hypotension, atenolol was discontinued, continue p.o. metoprolol History of small bowel obstruction Continue home medicines as previously prescribed GOAL: Clear understanding of disease process INSTRUCTIONS: Physician Discharge Instructions: -Follow-up with PCP in 1 to 2 weeks -Please call Dr. Jo at [phone] if any questions regarding hospital stay -Please call nursing station at [phone] if any nursing or medication questions -Return to the emergency room if symptoms worsen Diet: ADA, low sodium Activity: Fall precautions Vital Signs/Physical Exam: Temp Pulse Resp BP Pulse Ox 97.4 F 116 H 16 155/80 H 95 01/16/24 04:00 01/16/24 04:00 01/16/24 04:00 01/16/24 04:00 01/16/24 04:00 Laboratory Data at Discharge: WBC 11.20 thou/uL (4.3-10.9) H 01/16/24 03:22 Hgb 9.4 g/dL (12.0-15.0) L 01/16/24 03:22 Hct 27.9 % (36.0-45.0) L 01/16/24 03:22 Plt Count 295 thou/uL (152-406) 01/16/24 03:22 Sodium 136 mEq/L (136-145) 01/16/24 03:22 Potassium 3.2 mEq/L (3.5-5.1) L D 01/16/24 03:22 BUN 10 mg/dL (7-18) 01/16/24 03:22 Creatinine 0.79 mg/dL (0.55-1.02) 01/16/24 03:22 Glucose 107 mg/dL (74-106) H 01/16/24 03:22 Uric Acid 5.0 mg/dL (2.6-6.0) 01/09/24 09:43 Phosphorus 2.6 mg/dL (2.5-4.9) 01/16/24 03:22 Magnesium 1.6 01/16/24 03:22 Total Bilirubin 0.8 mg/dL (0.2-1.0) 01/09/24 09:43 AST 426 U/L (15-37) H 01/09/24 09:43 ALT 465 U/L (13-56) H 01/09/24 09:43 Alkaline Phosphatase 170 U/L (45-117) H 01/09/24 09:43 Lipase 21 U/L (13-75) 01/07/24 23:03 Home Medications: Atenolol [Tenormin] 50 mg PO DAILY 06/12/16 Levothyroxine [Synthroid*] 125 mcg PO [id number] 06/12/16 Tramadol HCl [Ultram] 50 mg PO Q6HP PRN 06/12/16 Aspirin [Aspirin EC 81 MG] 325 mg PO DAILY 03/16/23 Digoxin 125 mcg PO DAILY 01/08/24 Physician Discharge Instructions: 78-year-old female with past medical history of hypertension, atrial fibrillation on digoxin and atenolol, follows with Dr. jane at [facility], history of small bowel perforation requiring ileostomy [place] [address] Barry; presented because of lack of ileostomy output since the last 1 day. She states she was able to pass scanty amount yesterday but none since the last 24 hours. She admits to some generalized abdominal pain which is cramping in pattern. Was noted to have a small bowel obstruction, was evaluated by Dr. Barry, is status post Status post gen surgeon OR surgical intervention.01/10, is tolerating diet, was noted to have A-fib, RVR heart rate in the 130s with ambulation, cardiology was consulted started on amiodarone drip, diet was advanced as tolerated, patient can discharge home with home health,, follow-up with surgery in 1 week, follow-up with cardiology after discharge Assessment Small bowel obstruction post Status post gen surgeon OR surgical intervention.01/10 A-fib RVR, started on amiodarone, follow-up with cardiology after discharge-200 mg twice a day by mouth and recommend also apixaban 5 mg twice a day as her CHADSVASC score is elevated and she is at risk for stroke. She was noted to have orthostatic hypotension, atenolol was discontinued, continue p.o. metoprolol History of small bowel obstruction Start Eliquis 5 mg p.o. twice daily Continue home medicines as previously prescribed GOAL: Clear understanding of disease process INSTRUCTIONS: Physician Discharge Instructions: -Follow-up with PCP in 1 to 2 weeks -Please call Dr. Jo at [phone] if any questions regarding hospital stay -Please call nursing station at [phone] if any nursing or medication questions -Return to the emergency room if symptoms worsen Diet: ADA, low sodium Activity: Fall precautions Followup: Bassem Barry MD [ACTIVE - CAN ADMIT] - 1-2 Weeks Deep Jerome MD [ACTIVE - CAN ADMIT] - 1-2 Weeks Christine Castro FNP [Primary Care Provider] - 1-2 Weeks Time spent managing pt's care (in minutes): 55
[2024-01-16] MEDS: AMIODARONE HCL 200 MG TAB PO SCH (08:11)
[2024-01-16 09:06] VITALS: O2SAT 94
[2024-01-16] MEDS: APIXABAN 5 MG TABLET PO SCH (09:15)
[2024-01-16] MEDS: MAGNESIUM SULFATE 1 gm IVPB 1 GM/100 ML BAG IV ONE (09:16)
--- NOTE | 2024-01-16 10:26 | P.PN ---
Subjective Date of Service: 01/16/24 Chief Complaint: Small bowel obstruction Subjective: No new changes, No C/O voiced, Tolerating diet, Ambulating, Improving Review of Systems 10-point ROS is otherwise unremarkable Physical Examination - Vital Signs Temperature: 98.1 F Blood Pressure: 136/85 Pulse: 109 Respirations: 16 Pulse Ox (%): 97 - Physical Exam General: Alert, In no apparent distress HEENT: Atraumatic, PERRLA, EOMI Neck: Supple, JVD not distended Respiratory: Clear to auscultation bilaterally, Normal air movement Cardiovascular: Irregular heart rate/rhythm Gastrointestinal: Normal bowel sounds, No tenderness Musculoskeletal: No tenderness Integumentary: No rashes Neurological: Normal speech, Normal tone, Normal affect Lymphatics: No axilla or inguinal lymphadenopathy - Studies Medications List Reviewed: Yes Assessment And Plan - Current Problems (Diagnosis) (1) HTN (hypertension) Current Visit: Yes Status: Acute Plan: continue Toprol XL. (2) SBO (small bowel obstruction) Current Visit: Yes Status: Acute Plan: per surgical team. (3) Atrial fibrillation Onset Date: 05/29/16 Current Visit: No Status: Chronic Plan: Patient still in AF w RVR, started on Amiodarone 200 mg po BID after bolus and drip, patient says she dealt with AF since 2008 and do not want any further intervention, she also refuses NOAC and wants only high dose ASA. Continue Amiodarone 200 mg po BID Continue Toprol XL Continue ASA. Qualifiers: Physician Review: Patient Assessed, Agree with Above Assessment and Plan
[2024-01-16] MEDS: METOPROLOL TARTRATE 5 MG/5 ML INJ IV ONE (11:56)
[2024-01-16] MEDS: AMIODARONE HCL 200 MG TAB PO ONE (11:56)
[2024-01-16] MEDS ORDERED: AMIODARONE HCL 200 MG TAB PO ONE (12:00)
--- NOTE | 2024-01-16 12:04 | ECHO ---
HEIGHT: 5 ft 5 in WEIGHT: 182 lb 6.4 oz DATE OF STUDY: 01/16/[address]: Atul Jo MD 2-DIMENSIONAL: YES M.MODE: YES DOPPLER: YES COLOR FLOW: YES TDS: PORTABLE: YES DEFINITY: BUBBLE STUDY: DIAGNOSIS: ATRIAL FIBRILLATION CARDIAC HISTORY: CATHERIZATION: NO SURGERY: NO PROSTHETIC VALVE: NO PACEMAKER: NO MEASUREMENTS (cm) DIASTOLIC (NORMALS) SYSTOLIC (NORMALS) IVSd 1.0 (0.6-1.2) LA Diam 5.1 (1.9-4.0) LVEF 60% LVIDd 4.4 (3.5-5.7) LVIDs 3.1 (2.0-3.5) %FS 30% LVPWd 1.0 (0.6-1.2) Ao Diam 2.7 (2.0-3.7) 2 DIMENSIONAL ASSESSMENT: RIGHT ATRIUM: NORMAL LEFT ATRIUM: SEVERE DILATED RIGHT VENTRICLE: NORMAL LEFT VENTRICLE: NORMAL TRICUSPID VALVE: TRACE TRICUSPID REGURGITATION MITRAL VALVE: MILD MITRAL REGURGITATION PULMONIC VALVE: TRACE PULMONIC REGURGITATION AORTIC VALVE: NORMAL PERICARDIAL EFFUSION: NONE AORTIC ROOT: NORMAL LEFT VENTRICULAR WALL MOTION: NORMAL DOPPLER/COLOR FLOW: UNABLE TO ASSESS DIASTOLIC FUNCTION DUE TO ARRHYTHMIA COMMENTS: 1. NORMAL LEFT VENTRICULAR SYSTOLIC FUNCTION, EJECTION FRACTION 60%, NORMAL WALL MOTION 2. UNABLE TO ASSESS DIASTOLIC FUNCTION DUE TO ARRHYTHMIA 3. SEVERE ENLARGED LEFT ATRIUM 4. ELEVATED FILLING PRESSURE (RIGHT ATRIUM 15-20 mmHg) TECHNOLOGIST: MARIEL PIRES
[2024-01-16 12:22] VITALS: BP 110/63; TEMP 99.8
--- NOTE | 2024-01-16 16:44 | PN ---
Date of Progress Note: 01/16/2024 Subjective: The patient was admitted with acute kidney injury, ileus, small bowel obstruction. The patient treated conservatively. The patient had UTI. The patient feeling better. Kidney function has been improved. Objective: Vital Signs: When I saw the patient, blood pressure 136/85, pulse of 109. Chest: Clear to auscultation. Heart: S1, S2. Regular. Abdomen: Soft, nontender. Extremity: No edema. Neuro: Alert. No focality. Laboratory Data: Hemoglobin 9.4, sodium 136, potassium 3.2, bicarb 26, BUN 10, creatinine 0.7, calcium 8.7, phosphorus 2.6, magnesium 1.6, albumin 2.1, corrected calcium is 10.3. Current Medications: The patient on, include: 1. Ceftriaxone. 2. Aspirin. 3. Calcium carbonate. 4. Amiodarone. 5. Metoprolol. 6. Ensure. Assessment And Plan: 1. Acute kidney injury secondary to prerenal, recovered, resolved. 2. Hypertension, controlled, optimal. Continue current treatment. 3. Hypercalcemia. Workup was negative. Corrected calcium is still on the upper side. I will discontinue calcium supplement. 4. Urinary tract infection. Continue current antibiotic. 5. Small bowel obstruction, as by Primary. Time spent examining the patient [id number] reviewing data lab and the radiology placing orders and discussing the case with the patient discussing the case with the sales team leader including hospitalist and nursing staff more than 55 minutes TOVA Voice ID: [id number] Report ID: [id number] ESTER
[2024-01-16] MEDS ORDERED: AMIODARONE HCL 200 MG TAB PO SCH (21:00)
== END 2024-01-16 16:32 | disposition home health service (06) | DRG 329 ==
LOC: ER 18:28 → ERHOLD 01-08 01:13 → 2ND 01-08 12:24 → 3RD-ICU 01-11 13:26 → 2ND 01-12 18:10
PROVIDERS: ADMIT Internal Medicine; ATTEND Hospitalist
PROC: 0DN80ZZ Release Small Intestine, Open Approach (ICD-10-PCS; 2024-01-11)
PROC: 0DH67UZ Insertion of Feeding Device into Stomach, Via Natural or Artificial Opening (ICD-10-PCS; 2024-01-11)
PROC: 3E0G76Z Introduction of Nutritional Substance into Upper GI, Via Natural or Artificial Opening (ICD-10-PCS; 2024-01-11)
PROC: 0DB80ZZ Excision of Small Intestine, Open Approach (ICD-10-PCS; principal; 2024-01-11 10:00)
PROC: 0T9B70Z Drainage of Bladder with Drainage Device, Via Natural or Artificial Opening (ICD-10-PCS; 2024-01-14)
DX: K56.699 Other intestinal obstruction unspecified as to partial versus complete obstruction (principal); N17.0 Acute kidney failure with tubular necrosis; E87.1 Hypo-osmolality and hyponatremia; I48.20 Chronic atrial fibrillation, unspecified; N39.0 Urinary tract infection, site not specified; E87.6 Hypokalemia; E83.39 Other disorders of phosphorus metabolism; E83.52 Hypercalcemia; E83.42 Hypomagnesemia; K59.00 Constipation, unspecified; E86.0 Dehydration; I95.1 Orthostatic hypotension; E86.9 Volume depletion, unspecified; E03.9 Hypothyroidism, unspecified; I12.9 Hypertensive chronic kidney disease with stage 1 through stage 4 chronic kidney disease, or unspecified chronic kidney disease; N18.30 Chronic kidney disease, stage 3 unspecified; M19.90 Unspecified osteoarthritis, unspecified site; Z93.2 Ileostomy status; Z88.5 Allergy status to narcotic agent; Z88.1 Allergy status to other antibiotic agents; Z88.8 Allergy status to other drugs, medicaments and biological substances; Z79.82 Long term (current) use of aspirin; Z90.49 Acquired absence of other specified parts of digestive tract; Z91.041 Radiographic dye allergy status; Z79.890 Hormone replacement therapy; Z79.899 Other long term (current) drug therapy; Z90.710 Acquired absence of both cervix and uterus; Z91.048 Other nonmedicinal substance allergy status; Z96.653 Presence of artificial knee joint, bilateral; Z96.649 Presence of unspecified artificial hip joint
CPT/HCPCS: 36415; 71045; 74018; 74176; 80048; 80053; 80069; 80162; 81001; 82570; 83605; 83690; 83735; 83970; 84100; 84132; 84156; 84484; 84550; 85025; 87040; 87086; 87088; 88305; 88307; 93005; 93306; 94010; 96361; 96365; 96366; 96375; 97110; 97112; 97116; 97161; 97530; 99285; J0282; J0696; J1100; J1170; J2001; J2270; J2405; J2543; J2704; J3010; J3411; J3475; J3480; J7030; J7040; J7042; J7060; J7120; J7799